=== PATIENT | female | born 1945 | race Caucasian/White ===

== ENCOUNTER → 2016-11-23 | Outpatient (CLI) | payer MEDICARE ==
[~2016-11-23] MED LIST: ADVAIR 250-501 EAC1 IH; ADVAIR 250-501 EAC1 INH; ADVAIR 250-501 EACH INH; ADVAIR INH; ALBUTEROL; ALBUTEROL MININEB NEB; ALBUTEROL17 GM INH; ALBUTEROL2.5 MG/0.5 IH; AMITIZA24 MCG PO; AMLODIPINE BESY10 MG PO; AMLODIPINE BESYL5 MG PO; ANTIBIOTIC; ASPIRIN EC81 M1 PO; ASPIRIN PO; ASPIRIN81 M2 PO; ASPIRIN81 MG PO; BAYER CHEWABLE81 MG PO; CALCIUM 500 +1 EAC5 PO; CIPRO250 M1 PO; CLOPIDOGREL75 MG PO; CORGARD PO; COZAAR100 MG PO; DILAUDID4 MG PO; DILAUDID8 MG PO; DULCOLAX5 MG PO; DURAGESIC1 EAC1 TD; DURAGESIC100 MCG EXT; GABAPENTIN300 M2 PO; GLUCOPHAGE XR500 MG PO; GLUCOPHAGE500 M1 PO; GLUCOPHAGE500 MG PO; HCTZ PO; HUMIBID-LA600 MG PO; HYDROCHLOROTHIA25 MG PO; HYDROCODON-ACE1 EAC7 PO; KCL PO; KLONOPIN1 MG PO; KLOR-CON PO; LASIX20 MG PO; LEVAQUIN PO; LEVAQUIN750 MG PO; LOSARTAN POTASS50 MG PO; MACROBID100 M1 PO; MARY'S MAGIC POTION; METFORMIN HCL500 M1 PO; METOPROLOL SUCC25 MG PO; MIRALAX17 GM PO; MYSOLINE250 MG PO; MYSOLINE50 M1 PO; NADOLOL40 MG PO; NEXIUM PO; NEXIUM20 MG PO; NICOTINE TRANSD14 MG EXT; NICOTINE1 EAC1 TD; NORCO1 TAB 10/3 PO; NORVASC PO; NORVASC10 MG PO; OXYGEN; PHENERGAN25 M1 PO; PLAVIX PO; POTASSIUM CHLO20 ME1 PO; POTASSIUM20 MEQ/101 PO; PRAVACHOL20 MG PO; PRAVASTATIN SOD40 MG PO; PREDNISONE10 MG PO; PRIMIDONE50 MG PO; PROTONIX PO; PROVENTIL INH0.5 ML HHN; SPIRIVA RESPIMAT4 G1 INH; SPIRIVA18 MCG INH; TESSALON200 MG PO; ZESTORETIC 10-1 EAC1 PO; ZITHROMAX PO; ZOCOR PO; [UNRECOGNIZED DRUG - OTHER] TOP
--- NOTE | ~2016-11-23 | CT4 ---
[facility] A Service of [facility] RADIOLOGY TEXT RESULTS PATIENT: RENETTA CHO [facility] UNIT #: [id number] AGE: [address]: Isaak Mckee MD SEX: F ORDER DR: [id number] [facility] [address]. [place], [place] [address] [id number] O MR#: [id number] Acc #: [id number] NAME: RENETTA CHO. : 1945 SEX: F STUDY DATE/TIME: 11/23/2016 10:36 [facility] ROOM: STUDY DESCRIPTION: CT Abd and Pelv Wo Cont Attending Physician: Isaak Mckee M.D. Referring Physician: Isaak Mckee M.D. Ordering Physician: Isaak Mckee M.D. Primary Care Physician: Bonnie Cameron M.D. MEDICAL IMAGING REPORT This report is preliminary unless electronic signature is present EXAM CT abdomen and pelvis. INDICATIONS Malignant neoplasm of the anterior wall of the bladder. Intra abdominal lymphadenopathy and metastatic osseous disease. Restaging. TECHNIQUE CT of the abdomen and pelvis without contrast. Coronal and sagittal reconstructions were obtained. This CT exam was performed with one or more of the following radiation dose reduction techniques: automatic exposure control, adjustment of mA and/or kV according to patient size, and iterative reconstruction. COMPARISON CT abdomen and pelvis dated 09/17/2016. FINDINGS There is a soft tissue mass at the right ureterovesicular junction measuring up to 3.1 cm. This mass is fairly similar in size to the prior study. There are, however, new hyperdense areas within the right ureter. There is an area tracking from the proximal ureter to the distal ureter measuring at least 10 cm in length. This fills the mid to distal ureter. This could be blood clot or aggression of the tumor. Evaluation is limited without IV contrast. There is a severe right hydronephrosis and right renal cortical thinning, which is similar to the prior study. There is mild left renal atrophy; however, no left hydronephrosis. Remaining solid abdominal organs are within normal limits. The bowel is not dilated. The gallbladder is surgically absent. There is a large volume of stool throughout the colon. No pathologically enlarged STS. [facility] A Service of [facility] RADIOLOGY TEXT RESULTS PATIENT: RENETTA CHO LOCATION: [facility] : 44 UNIT #: [id number] AGE: [address]: Isaak Mckee MD SEX: F ORDER DR: retroperitoneal or mesenteric lymph nodes. PELVIS: The uterus is retroflexed. Uterus is surgically absent. Soft tissue in the posterior cul-de-sac may represent clumping of bowel loops; however, it is indeterminate without contrast in this region. There is osseous metastatic disease in the axial skeleton. The lesions at L3-L5 are fairly similar to the prior study. No pathologic fractures. IMPRESSION 1. Slight enlargement soft tissue mass at the right ureterovesicular junction. 2. Development of new hyperattenuation areas filling the right ureter from the mid to distal ureter. This area measures up to at least 10 cm in length. This may represent new tumor extension in the ureter or be due to hyperdense material such as blood clot. Evaluation is limited without IV contrast. 3. Severe right hydronephrosis and right renal atrophy are fairly similar to the prior study. 4. Large-volume stool throughout the colon. 5. Osseous metastatic disease in the axial skeleton is fairly similar to the prior study in the abdomen and pelvis. Please refer to separate dictated report for details of the axial skeleton in the chest. Dictated by... Wilian Yi M.D. THIS IS AN ELECTRONICALLY VERIFIED REPORT Wilian Yi M.D. at 11/23/2016 3:13 PM CIARA/claudia TD: 11/23/2016 12:11 JOB #: [id number] MEDICAL IMAGING REPORT Page 1 of 1 COPY
--- NOTE | ~2016-11-23 | CT57 ---
[facility] A Service of [facility] RADIOLOGY TEXT RESULTS PATIENT: RENETTA CHO [facility] 44 UNIT #: [id number] AGE: [address]: Isaak Mckee MD SEX: F ORDER DR: [id number] [facility] [address]. [place], [place] [address] [id number] O MR#: [id number] Acc #: [id number] NAME: RENETTA CHO. : 1945 SEX: F STUDY DATE/TIME: 11/23/2016 10:36 UNIT: [facility] ROOM: STUDY DESCRIPTION: CT Chest Wo Cont Attending Physician: Isaak Mckee M.D. Referring Physician: Isaak Mckee M.D. Ordering Physician: Isaak Mckee M.D. Primary Care Physician: Bonnie Cameron M.D. MEDICAL IMAGING REPORT This report is preliminary unless electronic signature is present EXAM CT chest. HISTORY Malignant neoplasm, anterior wall of the bladder. Abdominal metastatic disease. Osseous metastatic disease. Restaging. Observation for malignancy. TECHNIQUE CT of the chest, without contrast. Coronal and sagittal reconstructions were obtained. This CT exam was performed with one or more of the following radiation dose reduction techniques: automatic exposure control, adjustment of mA and/or kV according to patient size, and iterative reconstruction. COMPARISON CT chest, 09/17/2016; PET/CT, 09/25/2016. The exam was performed in conjunction with CT abdomen, 11/23/2016. FINDINGS There is a small ground glass nodule in the medial aspect of the right lower lobe (image 48). This is unchanged from at least June 2016 and considered to be benign. There is some volume loss and bronchiectasis involving the right middle lobe and the lingula. This is unchanged. There is moderate emphysema. No pathologically enlarged mediastinal or hilar lymph nodes. There are several borderline superior mediastinal lymph nodes, subcentimeter in diameter. An index node measuring 0.9 cm is unchanged. Please refer to a separately dictated report for details on the abdomen. There is osseous metastatic disease at T10, T11, and T12. The degree of sclerosis within the vertebra is increased. The overall appearance suggests mild disease progression. There is a compression deformity at STS. [facility] A Service of [facility] RADIOLOGY TEXT RESULTS PATIENT: RENETTA CHO LOCATION: [facility] : 44 UNIT #: [id number] AGE: [address]: Isaak Mckee MD SEX: F ORDER DR: T12; however, this appears unchanged. There is some sclerotic metastatic disease in the sternum that appears unchanged. There is a new sclerotic lesion at T9. IMPRESSION 1. Mild progression of metastatic disease in the axial skeleton. The degree of metastatic disease, particularly in the T9 through T12 have slightly increased. There is an old pathological fracture of T12; however, no new pathologic fractures are identified. 2. Small 4-mm ground glass nodule in the right lower lobe is unchanged. Dictated by... Wilian Yi M.D. THIS IS AN ELECTRONICALLY VERIFIED REPORT Wilian Yi M.D. at 11/23/2016 3:13 PM CIARA/christ TD: 11/23/2016 12:05 JOB #: [id number] MEDICAL IMAGING REPORT Page 1 of 1 COPY
== END | disposition home or self-care (01) ==
LOC: CCAT 09:26
DX: C67.3 Malignant neoplasm of anterior wall of bladder (principal); C77.2 Secondary and unspecified malignant neoplasm of intra-abdominal lymph nodes; C79.51 Secondary malignant neoplasm of bone; G25.0 Essential tremor; R91.1 Solitary pulmonary nodule; N13.30 Unspecified hydronephrosis; N26.1 Atrophy of kidney (terminal)
CPT/HCPCS: 71250; 74176

== ENCOUNTER → 2016-12-05 | Day surgery (SDC) | payer MEDICARE ==
--- NOTE | ~2016-12-05 | OR ---
Unit #: [id number] #: [id number] Patient: RENETTA CHO [id number] [address] [place], [place] [address] [id number] O MR#: [id number] NAME: RENETTA CHO ROOM: Date of Procedure: 12/05/2016 Admission Date: 12/05/2016 Surgeon: Aramis Aguirre M.D. : 1945 Attending Physician: Aramis Aguirre M.D. Referring Physician: Aramis Aguirre M.D. Primary Care Physician: Bonnie Cameron M.D. OPERATIVE REPORT PREOPERATIVE DIAGNOSES Metastatic bladder cancer with multifocal local recurrences. POSTOPERATIVE DIAGNOSES Metastatic bladder cancer with multifocal local recurrences. PROCEDURES PERFORMED Cystoscopy, transurethral resection of numerous small bladder tumors with fulguration, and Golden catheter placement. ANESTHESIA General. INDICATIONS FOR PROCEDURE This 71-year-old woman, who required a similar procedure 4 months ago with a normal left retrograde at that time, has been diagnosed with muscle invasive disease in 08/2014 and has complete obstruction and loss of her right kidney and continues on Opdivo with Oncology. She takes Plavix and aspirin and has had recurrent bleeding for 1 month. DESCRIPTION OF PROCEDURE The patient was given preoperative Levaquin and satisfactory general anesthesia. In the dorsal lithotomy position, routine prep and drape were performed. The 21-[place] rigid cystoscope was introduced with a 30-degree lens and video noting numerous papillary tumors again on all aspects of the bladder, although primarily on the right side. There were scattered small lesions of the left wall sparing of the left ureteral orifice and periorificial area. Multiple larger lesions of the direct posterior and anterior in the midline, right wall scattered lesions anterior and laterally near the bladder neck. There was some superficial necrosis and calcification on the larger ones. A 24-[place] resectoscope was introduced with a temporary paralysis in the larger lesions looped off with the cutting current for used equipment sales representative specimens. Smaller lesions were TUR'd and mechanically reduced. After taking used equipment sales representative samples for pathology, 3 mm rollerball was applied and this being the majority of the procedure, meticulous elimination with margin of numerous lesions in all of the above areas was performed. When the bladder was free of any suspicious areas noting also that the main deep unresectable tumor had largely epithelialized over with a recessed pocket in the posterior wall right of midline, the bladder was drained with an 18-[place] 2-way catheter for overnight use. Unit #: [id number] #: [id number] Patient: RENETTA CHO The patient will be seen in followup in 2 weeks. BCG has not been pursued, but may be appropriate and we will discuss with Oncology. Dictated by... Casey Melton/shari TD: 12/06/2016 01:36 JOB #: [id number] CC: Isaak Mckee M.D. OPERATIVE REPORT Page 1 of 1 X rAamis Aguirre MD X PROCEDURE OPERATIVE NOTE
--- NOTE | ~2016-12-05 | EKG ---
PATIENT: RENETTA CHO UNIT #: [id number] Ventricular Rate: 62 BPM Atrial Rate: 62 BPM P-R Interval: 158 ms QRS Duration: 90 ms Q-T Interval: 422 ms QTC Calculation(Bezet): 428 ms P [place]: 67 degrees Calculated R [place]: -21 degrees Calculated T [place]: 43 degrees Diagnosis Line: Normal sinus rhythm Diagnosis Line: Normal ECG Diagnosis Line: When compared with ECG of 25-JUL-2016 09:47, Diagnosis Line: No significant change was found Diagnosis Line: Confirmed by OMER NEWMAN MD ([id number]) on 12/06/2016 Diagnosis Line: 4:51:22 AM INTERPRETING MD: PATY LOYA
[2016-12-05 12:15] LABS: HEMATOCRIT 29.5 % (35.0-45.0); HEMOGLOBIN 9.8 gm/dL (12.0-16.0); MEAN CELL VOLUME 98.6 FL (83-96); MEAN CORPUSCULAR HEMOGLOBIN 32.7 PG (28-34); MEAN CORPUSCULAR HGB CONC 33.2 g/dL (30-36); MEAN PLATELET VOLUME 8.4 FL (6.5-11.5); RED BLOOD COUNT 2.99 X10e (3.90-5.30); RED CELL DISTRIBUTION WIDTH 15.1 % (11.0-15.5); WHITE BLOOD COUNT 4.1 X10e3 (4.0-10.5)
[2016-12-05 12:40] LABS: BUN/CREATININE RATIO 14.66; CALCIUM SERUM 8.4 mg/dL (8.4-10.2); CREATININE SERUM 1.5 mg/dL (0.6-1.4); GLOM FILT RATE Estimated 34.5 mL/min (>60); POTASSIUM 4.3 mmol/L (3.5-5.1)
== END | disposition home or self-care (01) ==
LOC: CSUR 11:22
PROVIDERS: Urology
DX: C67.9 Malignant neoplasm of bladder, unspecified (principal); J44.9 Chronic obstructive pulmonary disease, unspecified; J45.909 Unspecified asthma, uncomplicated; K21.9 Gastro-esophageal reflux disease without esophagitis; F17.210 Nicotine dependence, cigarettes, uncomplicated; R00.1 Bradycardia, unspecified; Z87.01 Personal history of pneumonia (recurrent); Z86.73 Personal history of transient ischemic attack (TIA), and cerebral infarction without residual deficits; Z88.0 Allergy status to penicillin
CPT/HCPCS: 80048; 85027; 88305; 93005; J1100; J1642; J1956; J2250; J2405; J3010

== ENCOUNTER 2017-02-19 06:42 | Inpatient (IN) | payer MEDICARE ==
--- NOTE | ~2017-02-19 | EKG ---
PATIENT: RENETTA CHO UNIT #: [id number] Ventricular Rate: 87 BPM Atrial Rate: 55 BPM QRS Duration: 88 ms Q-T Interval: 370 ms QTC Calculation(Bezet): 445 ms Calculated R [place]: 51 degrees Calculated T [place]: 26 degrees Diagnosis Line: Accelerated Junctional rhythm Diagnosis Line: Abnormal ECG Diagnosis Line: When compared with ECG of 05-DEC-2016 11:44, Diagnosis Line: Junctional rhythm has replaced Sinus rhythm Diagnosis Line: Confirmed by KELLY FREY MD ([id number]) on Diagnosis Line: 02/20/2017 8:21:21 AM INTERPRETING MD: TK LOYA
--- NOTE | ~2017-02-19 | CT4 ---
[facility] A Service of [facility] RADIOLOGY TEXT RESULTS PATIENT: RENETTA CHO LOCATION: [address] : 44 UNIT #: [id number] AGE: [address]: Shaan Parker MD SEX: F ORDER DR: [id number] [facility] [address] [place], [place] [address] [id number] I MR#: [id number] Acc #: [id number] NAME: RENETTA CHO. : 1945 SEX: F STUDY DATE/TIME: 02/19/2017 9:20 [facility]: [facility] STUDY DESCRIPTION: CT Abd and Pelv Wo Cont Attending Physician: Cheryl Pepper M.D. Ordering Physician: Lisbeth Jones M.D. Primary Care Physician: Bonnie Cameron M.D. MEDICAL IMAGING REPORT This report is preliminary unless electronic signature is present EXAM CT abdomen and pelvis without contrast. HISTORY 71-year-old female with periumbilical pain. Diffuse lower abdominal pain since this morning. Prior cholecystectomy. History of bladder cancer with known metastases. COMPARISON CT abdomen and pelvis 11/23/2016, PET CT 02/15/2017 FINDINGS Axial images performed through the abdomen and pelvis without contrast. Multiplanar reconstructed images reviewed at a workstation. This CT exam was performed with one or more of the following radiation dose reduction techniques: automatic exposure control, adjustment of mA and/or kV according to patient size, and iterative reconstruction. Lung bases suggest emphysematous changes and fibrosis. No masses or effusions. Liver demonstrates prominence of the intra and extrahepatic ducts. This may be a normal finding in this patient post cholecystectomy. It does not appear significantly changed from prior PET CT. No focal mass lesion is identified. Spleen unremarkable. Pancreas unremarkable. Adrenal glands appear normal. There is severe right-sided hydronephrosis as well as moderate left-sided hydronephrosis. This was present on the patient's study from November but appears increased, particularly on the left. GI tract remarkable for a ffqbyddg-be-fqour amount of colonic stool. The stomach and small bowel are unremarkable. Small amount of ascites, particularly within the pelvis. PELVIS: Uterus appears retroverted. Bladder is mildly distended. [facility] A Service of [facility] RADIOLOGY TEXT RESULTS PATIENT: RENETTA CHO [facility] 44 UNIT #: [id number] AGE: [address]: Shaan Parker MD SEX: F ORDER DR: Osseous structures remarkable for extensive sclerotic bone metastases throughout the visualized spine. Mild generalized body wall edema and mesenteric edema may be related to third spacing of fluid. IMPRESSION 1. Continued bilateral hydronephrosis, right greater than left with some progression of left-sided hydronephrosis when compared to the PET CT 11/23/2016. This may be related to retroperitoneal adenopathy and pelvic adenopathy related to patient's known metastatic bladder carcinoma. 2. Moderate amount of colonic stool suggesting constipation but no evidence high-grade destruction. 3. Widely disseminated skeletal metastases. 4. Small amount of ascites. 5. Prominence of the vascular and ductal structures within the liver but no focal mass lesion is identified. This is similar to the study of 11/23/2016 but does appear somewhat increased. Correlate with patient's laboratory data. 6. Generalized body wall and mesenteric edema which may be related to third spacing of fluid. Dictated by... Griselda Denise M.D. THIS IS AN ELECTRONICALLY VERIFIED REPORT Griselda Denise M.D. at 02/20/2017 12:29 PM JESSICA/lupe TD: 02/19/2017 22:33 JOB #: [id number] MEDICAL IMAGING REPORT Page 1 of 1 COPY
--- NOTE | ~2017-02-19 | CO ---
Unit #: [id number] #: [id number] Patient: RENETTA TROY [id number] [address] [place], [place] [address] [id number] I MR#: [id number] NAME: RENETTA TROY ROOM: [facility] Age: 71 Sex: F Admission Date: 02/19/2017 : 1945 Attending Physician: Shaan Parker M.D. Primary Care Physician: Bonnie Cameron M.D. Requesting Physician: Cheryl Pepper M.D. Consultation Date: 02/20/2017 CONSULTATION REPORT REASON FOR CONSULTATION Metastatic bladder cancer; please evaluate. HISTORY OF PRESENT ILLNESS Ms. Renetta Troy is a 71 years old with a history of metastatic bladder cancer who was last seen on Saturday as a followup of her PET CT scan, which showed progression of disease with increase in mediastinal lymphadenopathy. She presented to the emergency room on 02/19/2017 and was admitted with intractable pain in the left lower quadrant accompanied by constipation. In the emergency room, she was found to be hypotensive and bradycardic and has been bolused with IV fluids, transferred to the intensive care unit where she is being monitored with continued bradycardia. Blood pressure medications, including Metoprolol, were discontinued, and she is being observed. EKG showed a junctional rhythm with a rate of 48 per minute. Today she tells me that she feels slightly better as far as pain goes; however, she has been constipated since Saturday. PAST MEDICAL HISTORY Bladder cancer, originally diagnosed in August 2014 as part of workup for hematuria. 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 A PET CT scan done at that time showed abnormal lymphadenopathy in the left retroperitoneum and left iliac chain in AP window with biopsy of retroperitoneal lymph node showing metastatic cancer. She has since been treated with carboplatin and gemcitabine, followed thereafter by radiation, Opdivo, weekly Abraxane and most recently atezolizumab. Other medical problems include type 2 diabetes, severe COPD, pulmonary hypertension, essential tremor, degenerative arthritis and history of stroke in the past. PAST SURGICAL HISTORY Cystoscopy. FAMILY HISTORY Notable for mother with breast cancer at age 83 and a daughter with breast cancer, as well. Familial tremor. SOCIAL HISTORY Smokes a few cigarettes. Used to smoke 2-3 packs a day starting at age 16. Does not drink any alcohol. Single. She lives with one daughter. REVIEW OF SYSTEMS A 14-point review of systems was taken. CONSTITUTIONAL: Fatigue, weakness. EYES: Negative. Unit #: [id number] #: [id number] Patient: RENETTA TROY EARS, NOSE, MOUTH AND THROAT: Negative. CARDIOVASCULAR: Negative. RESPIRATORY: Chronic shortness of breath without any recent change. GASTROINTESTINAL: Recurrent nausea. Left lower quadrant abdominal pain. Constipation. GENITOURINARY: Hematuria on and off. ALLERGIC/LYMPHATIC: Negative. NEUROLOGIC: Tremor. Peripheral neuropathy. PSYCHIATRIC: Negative. SKIN: Negative. PHYSICAL EXAMINATION GENERAL: She is a pleasant elderly woman, awake, alert, oriented x3, currently in no distress. VITALS: Temperature is 97.5, pulse is 54, respirations 16, blood pressure 136/48, O2 sats 93% on room air. HEENT: Head examination shows pupils are equal and react well to light. She is pale but not icteric. Mucous membranes are moist. NECK: Without adenopathy, JVD or thyromegaly. CARDIOVASCULAR SYSTEM: First and second heart sounds were heard and regular with bradycardia. LUNGS: Chest expansion is symmetric. Bilateral equal with normal good breath sounds. ABDOMEN: Abdomen is soft. Slightly tender in the lower quadrants without any palpable masses. EXTREMITIES: Extremities are warm with good pulses. No edema, cyanosis or clubbing. NEUROLOGIC: She is awake, alert and oriented x3 without any focal findings. SKIN: Negative. LYMPHATICS: Negative. MUSCULOSKELETAL: Negative. DIAGNOSTIC STUDIES LABS: CBC with a white count of 5, hemoglobin 9.7, platelet count 133,000. A ProTime is 12, PTT 33.8. Lactic acid level is 0.7. Urine culture shows 1+ leukocyte esterase positive with numerous red cells. (1) is 3.2. Hemoglobin A1C is 5.3. Troponin level is 0.03. Ferritin level is 67. Iron is 34, TIBC 313, saturation is 11%. IMAGING: CT scan of the abdomen and pelvis has been personally reviewed by me, and findings were reviewed in comparison to her recent CT scan. A severe right hydronephrosis along with moderate left-sided hydronephrosis with a moderate to large amount of colonic stool and multiple skeletal metastases, which are stable. ASSESSMENT AND PLAN Ms. Renetta Troy is 71 years old with history of metastatic bladder cancer, type 2 diabetes, COPD, essential tremor, admitted with left lower quadrant abdominal pain. Was found to be hypotensive and bradycardic, which is now better, although bradycardia persists with a junctional rhythm. Beta-blockers have been discontinued. There is a possibility she may require a pacemaker if she continues to remain bradycardic. Her abdominal pain may, in part, be secondary to constipation given the recent change in pain medications. I discussed this with her. Will continue current dose of fentanyl patch and add Dulcolax suppository with plans to undergo an enema based upon response to suppository. Plans were discussed in detail with the patient, as well as daughter who is at bedside. Unit #: [id number] #: [id number] Patient: RENETTA TROY Thank you for allowing me to participate in her care. Dictated by... Casey Vale/noel TD: 02/20/2017 14:39 JOB #: [id number] CONSULTATION REPORT Page 1 of 1 X Isaak Mckee MD X CONSULTATION REPORT
--- NOTE | ~2017-02-19 | DS ---
Unit #: [id number] #: [id number] Patient: RENETTA CHO [id number] [address] [address] [id number] I MR#: [id number] NAME: RENETTA CHO. ROOM: [facility] Age: 71 Sex: F Admission Date: 02/19/2017 : 1945 Discharge Date: Attending Physician: Shaan Parker M.D. Primary Care Physician: Bonnie Cameron M.D. DISCHARGE SUMMARY PRIMARY DIAGNOSIS Symptomatic/unstable bradycardia, likely secondary to vagal etiology. SECONDARY DIAGNOSES 1. Abdominal pain, secondary to metastatic bladder cancer and hydronephrosis. 2. Peripheral vascular disease. 3. End-stage chronic obstructive pulmonary disease. 4. Chronic hypoxemic respiratory failure. 5. Nicotine abuse. 6. Severe essential tremor, genetic. HOSPITAL COURSE The patient was admitted to the ICU and placed on a dopamine drip with an external pacemaker in place for the first 24 hours. She was weaned off the dopamine drip and was seen in consultation with Dr. Marina and Dr. Elver Munguia with cardiology. The patient is a regular patient of Dr. Elver Munguia. Also, saw Dr. Aguirre with urology and Dr. Mckee with oncology. The patient's bradycardia improved and her medications were adjusted by cardiology and oncology. Dr. Aguirre with urology is planning an outpatient cystoscopy and fulguration of tumors as well as a left-sided stent placement early next week. She is having her aspirin and Plavix held in preparation for that. The patient was given contact information for Dr. Shaan Langley and Dr. Percy Antonio. She has seen Dr. Percy Antonio for her COPD in the past. Per cardiology, recommendation is for an outpatient sleep study when able, although patient is going to be very busy with ongoing chemotherapy and radiation for her bladder cancer as well as ongoing physical therapy for physical deconditioning. I did discuss with care management trying to get the patient a smaller portal oxygen tank for home as due to her frailty, she has difficulty with her current portable oxygen tank. DISCHARGE DISPOSITION To home with home health. DISCHARGE STATUS Clinically stable but with a poor long-term prognosis. DISCHARGE ACTIVITY Ad clifton. Unit #: [id number] #: [id number] Patient: RENETTA CHO DISCHARGE DIET Low-sodium diet. DISCHARGE MEDICATIONS Please see discharge med rec. Dictated by... Casey Levin/puja TD: 02/21/2017 12:41 JOB #: [id number] DISCHARGE SUMMARY Page 1 of 1 X Shaan Parker MD X DISCHARGE SUMMARY
--- NOTE | ~2017-02-19 | CR72 ---
[facility] A Service of [facility] RADIOLOGY TEXT RESULTS PATIENT: RENETTA CHO LOCATION: [address] : [birth year] UNIT #: [id number] AGE: [address]: Shaan Parker MD SEX: F ORDER DR: [id number] [facility] [address] [place], [place] [address] [id number] MR#: [id number] Acc #: [id number] NAME: RENETTA CHO. : 1945 SEX: F STUDY DATE/TIME: 02/19/2017 8:16 [facility]IT: [facility]OM: [facility] STUDY DESCRIPTION: CR Chest Single View Portable Attending Physician: Cheryl Pepper M.D. Ordering Physician: Lisbeth Jones M.D. Primary Care Physician: Bonnie Cameron M.D. MEDICAL IMAGING REPORT This report is preliminary unless electronic signature is present EXAM Portable chest HISTORY Hypoxia, abdominal pain. History of stroke. History of bladder cancer with metastases. COMPARISON 07/12/2016 FINDINGS Portable view of the chest demonstrates pulmonary hyperinflation and hyperlucency suggesting underlying emphysema. Small amount of right basilar atelectasis and/or early infiltrate. No dense consolidation. No sizeable effusions. Heart and mediastinum unremarkable. Indwelling venous access port overlies the right chest, distal tip mid SVC. No pneumothorax. Dictated by... Griselda Denise M.D. THIS IS AN ELECTRONICALLY VERIFIED REPORT Griselda Denise M.D. at 02/20/2017 12:29 PM JESSICA/lupe TD: 02/19/2017 22:17 JOB #: [id number] MEDICAL IMAGING REPORT Page 1 of 1 COPY
--- NOTE | ~2017-02-19 | CO ---
Unit #: [id number] #: [id number] Patient: RENETTA CHO [id number] [address] [place], [place] [address] [id number] MR#: [id number] NAME: RENETTA CHO ROOM: [facility] Age: 71 Sex: F Admission Date: 02/19/2017 : 1945 Attending Physician: Shaan Parker M.D. Primary Care Physician: Bonnie Cameron M.D. CONSULTATION REPORT REASON FOR CONSULTATION Bradycardia. HISTORY OF PRESENT ILLNESS This is a 71-year-old white female, who presented to the emergency room with a complaint of abdominal pain that is worsening over the past one day. She had no episodes of vomiting, but however today she has significant vomiting and nausea. She has a history of metastatic bladder cancer that has radiated to her lumbar spine. She has undergone chemotherapy and radiation in the past and was scheduled to restart chemotherapy soon. During the course of her stay, the patient was noted to be bradycardic where heart rate was in the 40s. Her blood pressure was also low at 87/56 mmHg. She has been placed on dopamine drip. She is also on IV fluids. She has been treated for pain with Dilaudid and for nausea, Zofran. She denies any symptoms of angina. She denies palpitations, dizziness, or diaphoresis. The patient is a poor historian, but states she has had a cardiac catheterization and/or stress test years ago, but there are no details available. PAST MEDICAL HISTORY 1. A 2D echocardiogram on 12/27/2012 showed ejection fraction equal to greater than 55% with pseudonormalization. There is mild tricuspid regurgitation. Right ventricular systolic pressure 40 to 50 mmHg. 2. Hypertension. 3. Hyperlipidemia. 4. Peripheral vascular disease with history of carotid endarterectomy, peripheral stents. 5. Diabetes mellitus, type 2. 6. Metastatic bladder cancer, radiation to the spine. 7. End-stage COPD. 8. Chronic back pain. 9. Active smoker. 10. Abdominal aortic aneurysm repair. PAST SURGICAL HISTORY 1. Bilateral carotid endarterectomy. 2. Lower extremity stenting. 3. Abdominal aortic aneurysm repair. 4. Cholecystectomy. 5. Breast lumpectomy. 6. TURP. 7. Port placement. SOCIAL HISTORY Unit #: [id number] #: [id number] Patient: RENETTA CHO The patient lives with her daughter. She smokes a pack of cigarettes a day. She denies illicit drug or alcohol use. FAMILY HISTORY Negative for coronary artery disease. Her father from cancer. ALLERGIES Penicillin. HOME MEDICATIONS Gabapentin 300 mg q.h.s., aspirin 81 mg daily, fentanyl 100 mcg q.72 hours, Dilaudid 8 mg q.4 hours p.r.n., Plavix 75 mg daily, metoprolol succinate 25 mg daily, Advair 250/50 Diskus one inhalation b.i.d., Spiriva one inhalation daily, Norvasc 10 mg daily, furosemide 20 mg b.i.d., pravastatin 20 mg daily. REVIEW OF SYSTEMS CONSTITUTIONAL: Negative for fever or chills. Has no weight gain or weight loss. HEENT: No headache, hearing or vision changes, or difficulty with swallowing. No dizziness. CARDIOVASCULAR: Has no symptoms of angina. Denies palpitations. No paroxysmal nocturnal dyspnea or orthopnea. No syncope or near syncope. RESPIRATORY: No shortness of breath, cough, or hemoptysis. GASTROINTESTINAL: Positive for abdominal pain, nausea, vomiting nonbloody emesis. EXTREMITIES: Positive for lower extremity edema. PHYSICAL EXAMINATION VITAL SIGNS: Blood pressure 87/56, heart rate 40, temperature 97.7, weight 57.7 kg. GENERAL: This is a very pale 71-year-old, ill-appearing white female, who is in no acute respiratory distress. NEUROLOGIC: She is awake, alert, and oriented. There are no focal weaknesses. NECK: Trachea is midline. No thyromegaly or lymphadenopathy. No jugular venous distention. HEART: S1 and S2. Heart sounds are normal. No murmurs, rubs, or clicks. Regular rate and rhythm. LUNGS: Diminished breath sounds without rales, rhonchi, or wheezes. ABDOMEN: Slightly firm, nontender with bowel sounds are present. EXTREMITIES: With 1+ leg edema. SKIN: Warm and dry. DIAGNOSTIC STUDIES LABORATORY RESULTS: White count 5.0, hemoglobin 9.7, hematocrit 29.5, platelet count 133. Sodium 133, potassium 4.5, BUN 25, creatinine 1.3, glucose 97, troponin less than 0.05. IMAGING STUDIES: CT of the abdomen and pelvis shows slight enlargement of soft-tissue mass in the right ureterovesical junction. Severe right hydronephrosis with right renal atrophy. CT of the chest shows mild progression of the metastatic disease in axial skeleton. There is metastatic disease in T9 through T12. No pathological new fractures are found. Unit #: [id number] #: [id number] Patient: RENETTA CHO CARDIOVASCULAR STUDIES: Initial electrocardiogram shows junctional tachycardia with a rate of 87 beats per minute. Repeat EKG shows junctional rhythm with a rate of 48 beats per minute. There were no acute ischemic changes. IMPRESSION 1. Abdominal pain. 2. Metastatic bladder cancer to the spine. 3. Junctional bradycardia. 4. Hypotension. 5. Peripheral vascular disease, status post peripheral stents/bilateral carotid endarterectomies/abdominal aortic aneurysm repair. 6. End-stage chronic obstructive pulmonary disease. 7. Chronic respiratory failure. 8. Nicotine abuse. PLAN 1. Cardiology was consulted for bradyarrhythmias. The patient's bradycardia is probably secondary to vagal etiology. We will continue dopamine for heart rate and blood pressure control. 2. Continue supportive care. 3. Agree with IV fluids. 4. We will obtain 2D echocardiogram to evaluate left ventricular systolic function and valvular heart disease. 5. Obtain TSH to rule out thyroid disease. 6. Atropine will be given if needed. 7. Continue to hold beta-blockers. 8. Questionable level of care given metastatic cancer. 9. We will follow the patient with you. Thank you for allowing us to assist with this patient's care. Dictated by... Marco A CarsonP.RManiN. for S. Casey Borjas/shari TD: 02/19/2017 18:01 JOB #: [id number] CC: Casey Wheeler M.D. CONSULTATION REPORT Page 1 of 1 X Sha Ignacio APRN X CONSULTATION REPORT
--- NOTE | ~2017-02-19 | HP ---
Unit #: [id number] #: [id number] Patient: RENETTA CHO [id number] [address] [address] [id number] I MR#: [id number] NAME: RENETTA CHO. ROOM: 52338 Age: 71 Sex: F Admission Date: 02/19/2017 : 1945 Attending Physician: Cheryl Pepper M.D. Primary Care Physician: Bonnie Cameron M.D. HISTORY AND PHYSICAL CHIEF COMPLAINT Abdominal pain. HISTORY OF PRESENT ILLNESS The patient is a 71-year-old female with past medical history of metastatic bladder cancer, chronic pain, hypertension, hyperlipidemia, diabetes, COPD, chronic respiratory failure, peripheral vascular disease, pulmonary hypertension, compression fracture, valvular heart disease, chronic anemia who presented to the emergency department for evaluation of the above. The patient states that she has a history of abdominal pain. It became acutely worse within the past 24 hours. She states that it is in the lower abdomen. She describes as "achy." There are no exacerbating or alleviating factors. It is similar to pain that she has had in association with bladder cancer in the past. She reports one bout of nonbloody emesis within the past 24 hours. Her last bowel movement was on February 17, 2017. She denies any fever. No cough or cold symptoms. No chest pain. No difficulty breathing. In the emergency department, initial pulse and blood pressure were 43 and [address] of the abdomen and pelvis was done and showed bilateral hydronephrosis, right greater than left with associated retroperitoneal adenopathy, skeletal metastases. A small amount of ascites was also noted. EKG showed a junctional rhythm with a rate of 48 beats per minute. She was given 1 L of normal saline as well as 1 mg of Dilaudid, 4 mg of Zofran. She is being admitted to [facility] for evaluation and further treatment. PAST MEDICAL HISTORY 1. Admission to [facility], July 12 through July 14, 2016 for weakness. 2. Metastatic bladder cancer, followed by Dr. Aguirre and Dr. Mckee. Her last chemotherapy was about three months ago. 3. Chronic pain, maintained on p.o. Dilaudid as well as Fentanyl patch. 4. Hypertension. 5. Hyperlipidemia. 6. Diabetes. 7. COPD with continued tobacco abuse. 8. Chronic respiratory failure on 2 L of oxygen per nasal cannula. 9. Peripheral vascular disease, status post bilateral lower extremity stenting. 10. History of compression fracture. 11. Pulmonary hypertension. Unit #: [id number] #: [id number] Patient: RENETTA CHO 12. Valvular heart disease, the patient has seen Dr. Henson in the past. 13. Echocardiogram, December 27, 2012, showed an ejection fraction of greater than 55% with transmitral Doppler flow pattern suggestive of pseudonormalization. Right ventricular systolic pressure was elevated at 40-50 mmHg. Mild mitral regurgitation was also noted. PAST SURGICAL HISTORY 1. Bilateral carotid endarterectomy. 2. Bilateral lower extremity stenting. 3. Abdominal aortic aneurysm repair. 4. Cholecystectomy. 5. Breast lumpectomy. 6. Transurethral resection of bladder tumor. 7. Port placement. SOCIAL HISTORY The patient lives with her daughter. She continues to smoke a pack of cigarettes daily. She denies alcohol use. She walks without assistance. She states that she has not thought about her code status. She would like to discuss it with family. FAMILY HISTORY Notable for her dad having liver and lung cancer. ALLERGIES Penicillin. HOME MEDICATIONS 1. Advair 250/50 inhaled twice daily. 2. Spiriva inhaled daily. 3. Norvasc 10 mg daily. 4. Lasix 20 mg twice daily. 5. Pravachol 20 mg daily. 6. Aspirin 81 mg daily. 7. Duragesic patch 100 mcg q.72 hours. 8. Dilaudid 8 mg q.4 hours p.r.n. 9. Plavix 75 mg daily. 10. Metoprolol 25 mg daily. 11. Gabapentin 300 mg daily. REVIEW OF SYSTEMS A complete review of systems is negative except as indicated in the HPI. DIAGNOSTIC STUDIES LABORATORY: Troponin is less than 0.05. Complete blood count notable for hemoglobin and hematocrit of 9.7 and 29.5 respectively, platelets are 133,000. INR is 1.1. Lactic acid is 0.7. Comprehensive metabolic panel notable for sodium of 133, BUN and creatinine of 25 and 1.3 respectively. Calcium is 8.3. Albumin 3.4, alkaline phosphatase 119. Lipase is 10. Urinalysis: Notable for 1+ leukocyte esterase, 3+ protein, 3+ blood with innumerable red blood cells, 2-5 white blood cells, no bacteria, nitrite negative. IMAGING: Chest x-ray shows findings consistent with emphysema. CT of the abdomen and pelvis shows bilateral hydronephrosis, right greater than left. Retroperitoneal adenopathy, skeletal metastases, and small ascites. Unit #: [id number] #: [id number] Patient: RENETTA CHO CARDIOVASCULAR: EKG shows junctional rhythm with rate of 48 beats per minute. PHYSICAL EXAMINATION VITAL SIGNS: Temperature is 97.7, pulse 43, respirations 20, blood pressure 95/63, oxygen saturation is 95% on room air. GENERAL: The patient is a female who is awake and alert in no acute distress. HEENT: The head is atraumatic. Mucous membranes are moist. NECK: Supple. Trachea is midline. CARDIOVASCULAR: Regular rate and rhythm. LUNGS: Demonstrate decreased breath sounds at the bases. Breathing is not labored with conversation. ABDOMEN: Soft. She is tender to palpation throughout. Bowel sounds are present in all four quadrants. EXTREMITIES: Nontender with no pedal edema. NEUROLOGIC: The patient is awake and alert. She follows commands. PSYCHIATRIC: Mood and affect are normal. The patient is cooperative. SKIN: Skin of examined areas is warm and dry. The patient does have a port in the right upper chest. ASSESSMENT The patient is a 71-year-old female with: 1. Abdominal pain. 2. Metastatic bladder cancer, followed by Dr. Mckee and Dr. Aguirre. The patient's last chemotherapy was three months ago. 3. Bradycardia with a heart rate currently of 43. 4. Chronic pain, maintained on p.o. Dilaudid as well as Fentanyl patch. 5. Hypertension: The patient's blood pressure has actually been running low in the emergency department, most recent blood pressure 98/53. 6. Hyperlipidemia. 7. Diabetes. 8. Chronic obstructive pulmonary disease with continued tobacco abuse. 9. Chronic respiratory failure on 2 L of oxygen per nasal cannula. 10. Peripheral vascular disease, status post bilateral lower extremity stenting, bilateral carotid endarterectomy, abdominal aortic aneurysm repair. 11. Pulmonary hypertension with right ventricular systolic pressure as noted above. 12. Compression fracture. 13. Valvular heart disease with echocardiogram results noted above. 14. Chronic anemia: The patient's hemoglobin was 9.8 on December 05, 2016. It is 9.7 today. PLAN 1. Admit for observation to intermediate level. 2. Advance to liquid diet as tolerated. 3. Normal sinus rhythm at 75 mL/hr. 4. Dilaudid 1 to 2 mg IV q.4 hours p.r.n. 5. P.r.n. Zofran. 6. Dopamine drip at 2 mcg/kg/min. 7. Monitor heart rate and blood pressure closely. 8. Will hold Norvasc, Lasix, and metoprolol. 9. Serial cardiac enzymes. 10. A 2D echo. 11. TSH. 12. Consult Dr. Munguia regarding bradycardia. Unit #: [id number] #: [id number] Patient: RENETTA CHO 13. Consult Dr. Mckee regarding metastatic bladder cancer. 14. Supplemental oxygen. 15. P.r.n. DuoNeb. 16. Hemoglobin A1c. 17. Low-dose sliding scale insulin with Accu-Cheks. 18. Blood cultures x2 for further evaluation of hypotension to rule out infection. 19. Repeat labs in the morning. 20. SCDs for DVT prophylaxis. 21. Additional workup and consultants based on above. Dictated by Casey García/puja TD: 02/19/2017 11:39 JOB #: [id number] HISTORY AND PHYSICAL Page 1 of 1 X Cheryl Pepper MD X HISTORY AND PHYSICAL
--- NOTE | ~2017-02-19 | CO ---
Unit #: [id number] #: [id number] Patient: RENETTA CHO [id number] [address] [place], [place] [address] [id number] I MR#: [id number] NAME: RENETTA CHO. ROOM: [facility] Age: 71 Sex: F Admission Date: 02/19/2017 : 1945 Attending Physician: Shaan Parker M.D. Primary Care Physician: Bonnie Cameron M.D. CONSULTATION REPORT REASON FOR CONSULTATION New left hydronephrosis in patient with metastatic bladder cancer. HISTORY This pleasant, 71-year-old woman was admitted for abdominal pain thought due in part to constipation, although she has metastatic bladder cancer with multiple skeletal metastases and pelvic lymphadenopathy. Her constipation is improved. Some pain persists. She has also had severe bradycardia into the 20s noted on this admission. I am consulted due to progressive left-sided hydronephrosis. She was formerly treated by Dr. Ta who diagnosed muscle invasive bladder cancer with a large TUR in July of 2014. 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 She has required multiple palliative cystoscopies, most recently under my care, including normal left retrograde with treatment of numerous small bladder tumors in July followed by cystoscopy and repeat fulguration in November. I have discussed BCG with her and with Dr. Mckee to reduce the frequency of her bladder recurrences and this was thought medically appropriate and permissible in conjunction with chemotherapy, but this has been deferred due to continued bleeding. She takes aspirin and Plavix. She is currently comfortable in the ICU, still with some left lower quadrant pain, but no left flank pain per se. She is troubled by the ongoing bladder bleeding and would like this addressed again when appropriate. PAST MEDICAL HISTORY Includes hypertension, hyperlipidemia, diabetes, COPD, peripheral vascular disease, compression fractures, chronic anemia, valvular heart disease, and metastatic bladder cancer. PAST SURGICAL HISTORY Surgeries include multiple TURs, bilateral carotid endarterectomy, bilateral lower extremity stents, abdominal aortic aneurysm repair, cholecystectomy, and breast lumpectomy. FAMILY HISTORY Noncontributory. SOCIAL HISTORY Unit #: [id number] #: [id number] Patient: RENETTA CHO Markedly strong and continued tobacco history. REVIEW OF SYSTEMS Notable for the above. HOME MEDICATIONS 1. Advair. 2. Spiriva. 3. Norvasc. 4. Lasix. 5. Pravachol. 6. Low dose aspirin. 7. Duragesic. 8. Dilaudid. 9. Plavix 75. 10. Metoprolol. 11. Gabapentin. ALLERGIES Penicillin. PHYSICAL EXAMINATION GENERAL APPEARANCE: Patient is alert with her usual anxious appearance, but comfortable. VITAL SIGNS: Afebrile with stable vital signs currently. Temperature 97.8 degrees; pulse 66; blood pressure 158/74; respirations 16; height 5 feet, 5 inches; and weight 136 pounds. ABDOMEN: Soft with left lower quadrant tenderness. DIAGNOSTIC STUDIES LABORATORY: BUN 24, creatinine 13, EGFR 41, and albumin 3. Hemoglobin 9.8. IMAGING: CT scan, personally reviewed, shows new moderate left hydronephrosis. It was mild on 11/23 PET. Skeletal metastases, multiple, noted. IMPRESSION 1. Left hydronephrosis to solitary functional kidney, likely to progress importantly. 2. Presumed multiple recurrent bladder tumors with ongoing hematuria. Patient has a poor prognosis at this point, but is still relatively comfortable and functional and would like to proceed with repeat fulguration of bladder tumors and stent placement as offered. PLAN Will schedule cystoscopy and fulguration of tumors and left stent placement when medically permissible, perhaps early next week or as outpatient. Her aspirin and Plavix are on hold. Thank you for the consultation. Dictated by... Aramis Aguirre M.D. [facility]/ Unit #: [id number] #: [id number] Patient: RENETTA CHO TD: 02/21/2017 10:17 JOB #: [id number] CC: Casey García M.D. CONSULTATION REPORT Page 1 of 1 X Aramis Aguirre MD CONSULTATION REPORT
--- NOTE | ~2017-02-19 | EKG ---
PATIENT: RENETTA CHO UNIT #: [id number] Ventricular Rate: 48 BPM Atrial Rate: 250 BPM QRS Duration: 84 ms Q-T Interval: 458 ms QTC Calculation(Bezet): 409 ms Calculated R [place]: 56 degrees Calculated T [place]: 23 degrees Diagnosis Line: Junctional rhythm Diagnosis Line: Abnormal ECG Diagnosis Line: When compared with ECG of 19-FEB-2017 07:44, Diagnosis Line: (unconfirmed) Diagnosis Line: Vent. rate has decreased BY 39 BPM Diagnosis Line: Confirmed by KELLY FREY MD ([id number]) on Diagnosis Line: 02/20/2017 8:21:26 AM INTERPRETING MD: TK LOYA
[~2017-02-19 06:42] MED LIST changes: -ADVAIR 250-501 EAC1 INH; -CALCIUM 500 +1 EAC5 PO; -DILAUDID8 MG PO; -GABAPENTIN300 M2 PO; -LEVAQUIN750 MG PO; -MARY'S MAGIC POTION; -METOPROLOL SUCC25 MG PO; -MIRALAX17 GM PO; -NORVASC10 MG PO; -PRAVACHOL20 MG PO; -ZESTORETIC 10-1 EAC1 PO; -[UNRECOGNIZED DRUG - OTHER] TOP
[2017-02-19 08:07] LABS: POC - CKMB <1.0 ng/mL (0.0-7.9); POC - TROPONIN <0.05 ng/mL (<=0.05)
[2017-02-19 08:10] LABS: BASOPHIL% 0.6 % (0-2.5); EOSINOPHIL% 0.7 % (0.0-7.0); HEMATOCRIT 29.5 % (35.0-45.0); HEMOGLOBIN 9.7 gm/dL (12.0-16.0); LYMPHOCYTE# 0.4 X10e3 (1.0-3.5); LYMPHOCYTE% 8.2 % (17.0-45.0); MEAN CELL VOLUME 96.1 FL (83-96); MEAN CORPUSCULAR HEMOGLOBIN 31.6 PG (28-34); MEAN CORPUSCULAR HGB CONC 32.9 g/dL (30-36); MEAN PLATELET VOLUME 9.3 FL (6.5-11.5); MONOCYTE# 0.4 X10e3 (0-1.0); MONOCYTE% 9.1 % (3.0-12.0); NEUTROPHIL% 81.4 % (40-75); PLATELET COUNT 133 X10e3 (140-420); RED BLOOD COUNT 3.07 X10e (3.90-5.30); RED CELL DISTRIBUTION WIDTH 15.6 % (11.0-15.5)
[2017-02-19 08:14] LABS: DIFF IND NO
[2017-02-19 08:24] LABS: INR 1.1; PARTIAL THROMBOPLASTIN TIME 33.8 SECONDS (23.5-31.3)
[2017-02-19 08:43] LABS: URINE SOURCE CLEAN CATCH
[2017-02-19 08:52] LABS: ALBUMIN SERUM 3.4 g/dL (3.5-5.0); BILIRUBIN, DIRECT 0.2 mg/dL (0.0-0.2); BILIRUBIN,INDIRECT 0.9 mg/dL (0.0-0.9); BILIRUBIN,TOTAL 1.1 mg/dL (0.2-2.0); BUN/CREATININE RATIO 19.23; CALCIUM SERUM 8.3 mg/dL (8.4-10.2); CREATININE SERUM 1.3 mg/dL (0.6-1.4); POTASSIUM 4.5 mmol/L (3.5-5.1)
[2017-02-19 08:54] LABS: URINE APPEARANCE CLOUDY; URINE BILIRUBIN NEG (NEG); URINE BLOOD 3+ (NEG); URINE GLUCOSE NEG (NEG); URINE KETONE NEG (NEG); URINE LEUKOCYTE ESTERASE 1+ (NEG); URINE NITRATE NEG (NEG); URINE PH 5.5 (5-8); URINE PROTEIN 3+ (NEG); URINE SPECIFIC GRAVITY 1.018 (1.003-1.035)
[2017-02-19 08:58] LABS: U HYALINE CASTS AUWI 0-2 /[LPF]; URBCS1 AUWI INNUM /[HPF] (0-2); URINE BACTERIA AUWI NEG (NEGATIVE); URINE COLOR BROWN; URINE SQUAMOUS EPITHELIAL CELL NONE SEEN /[HPF]
[2017-02-19 08:59] LABS: CULTURE INDICATED? YES
[2017-02-19] MEDS ORDERED: ADVAIR 250-501 EAC1 INH (10:04)
[2017-02-19] MEDS ORDERED: NORVASC10 MG PO (10:05)
[2017-02-19] MEDS ORDERED: LASIX20 MG PO (10:05)
[2017-02-19] MEDS ORDERED: SPIRIVA18 MCG INH (10:05)
[2017-02-19] MEDS ORDERED: ASPIRIN81 M2 PO (10:05)
[2017-02-19] MEDS ORDERED: PRAVACHOL20 MG PO (10:05)
[2017-02-19] MEDS ORDERED: DURAGESIC1 EAC1 TD (10:06)
[2017-02-19] MEDS ORDERED: DILAUDID8 MG PO (10:07)
[2017-02-19] MEDS ORDERED: CLOPIDOGREL75 MG PO (10:07)
[2017-02-19] MEDS ORDERED: GABAPENTIN300 M2 PO (10:07)
[2017-02-19] MEDS ORDERED: METOPROLOL SUCC25 MG PO (10:07)
[2017-02-19 13:14] LABS: CHOLESTEROL 133 mg/dL (0-200); HDL CHOLESTEROL 53 mg/dL (35-95); LDL CHOLESTEROL 64 mg/dL (-130); LDL/HDL RATIO 1 RATIO (0-4); TRIGLYCERIDES 78 mg/dL (10-160)
[2017-02-19 14:54] LABS: %MB 2.8 % (0.0-4.0); MB 2.1 ng/ml
[2017-02-19 17:41] LABS: IRON SERUM 34 ug/dL (28-170); TOTAL IRON BINDING CAPACITY 313 ug/dL (269-535); TRANSFERRIN 224 mg/dL (192-382); TRANSFERRIN SATURATION 11 % (20-50)
[2017-02-19 20:40] LABS: %MB 2.9 % (0.0-4.0); MB 2.2 ng/ml
[2017-02-20 05:21] LABS: BASOPHIL% 0.5 % (0-2.5); EOSINOPHIL% 0.5 % (0.0-7.0); HEMATOCRIT 29.1 % (35.0-45.0); HEMOGLOBIN 9.5 gm/dL (12.0-16.0); LYMPHOCYTE# 0.6 X10e3 (1.0-3.5); LYMPHOCYTE% 12.2 % (17.0-45.0); MEAN CELL VOLUME 96.5 FL (83-96); MEAN CORPUSCULAR HEMOGLOBIN 31.4 PG (28-34); MEAN CORPUSCULAR HGB CONC 32.5 g/dL (30-36); MEAN PLATELET VOLUME 8.9 FL (6.5-11.5); MONOCYTE# 0.6 X10e3 (0-1.0); MONOCYTE% 11.2 % (3.0-12.0); NEUTROPHIL% 75.6 % (40-75); PLATELET COUNT 139 X10e3 (140-420); RED BLOOD COUNT 3.01 X10e (3.90-5.30); RED CELL DISTRIBUTION WIDTH 15.6 % (11.0-15.5); WHITE BLOOD COUNT 5.3 X10e3 (4.0-10.5)
[2017-02-20 05:30] LABS: DIFF IND NO
[2017-02-20 06:45] LABS: BILIRUBIN,TOTAL 0.9 mg/dL (0.2-2.0); BUN/CREATININE RATIO 18.66; CALCIUM SERUM 7.3 mg/dL (8.4-10.2); CREATININE SERUM 1.5 mg/dL (0.6-1.4); GLOM FILT RATE Estimated 34.5 mL/min (>60); POTASSIUM 4.7 mmol/L (3.5-5.1); PROTEIN TOTAL SERUM 5.3 g/dL (6.0-8.3)
[2017-02-21 05:38] LABS: BASOPHIL% 0.6 % (0-2.5); EOSINOPHIL% 0.9 % (0.0-7.0); HEMATOCRIT 29.7 % (35.0-45.0); HEMOGLOBIN 9.8 gm/dL (12.0-16.0); LYMPHOCYTE# 0.4 X10e3 (1.0-3.5); LYMPHOCYTE% 8.1 % (17.0-45.0); MEAN CELL VOLUME 96.1 FL (83-96); MEAN CORPUSCULAR HEMOGLOBIN 31.7 PG (28-34); MEAN CORPUSCULAR HGB CONC 32.9 g/dL (30-36); MEAN PLATELET VOLUME 8.9 FL (6.5-11.5); MONOCYTE# 0.4 X10e3 (0-1.0); MONOCYTE% 7.8 % (3.0-12.0); NEUTROPHIL# 4.5 X10e3 (1.5-7.1); NEUTROPHIL% 82.6 % (40-75); PLATELET COUNT 130 X10e3 (140-420); RED BLOOD COUNT 3.08 X10e (3.90-5.30); RED CELL DISTRIBUTION WIDTH 15.6 % (11.0-15.5); WHITE BLOOD COUNT 5.4 X10e3 (4.0-10.5)
[2017-02-21 05:57] LABS: DIFF IND NO
[2017-02-21 06:30] LABS: BUN/CREATININE RATIO 18.46; CALCIUM SERUM 7.4 mg/dL (8.4-10.2); CREATININE SERUM 1.3 mg/dL (0.6-1.4); POTASSIUM 4.8 mmol/L (3.5-5.1)
[2017-02-21] MEDS ORDERED: ZESTORETIC 10-1 EAC1 PO (12:48)
== END 2017-02-21 14:30 | disposition home health service (06) | DRG 309 ==
LOC: CED 06:42 → CEDOF 11:05 → CED 11:05 → CICCU3 11:23 → CEDOF 11:23 → CED 11:23 → CEDOF 14:34 → CICCU3 14:34 → CEDOF 15:02 → CICCU3 02-20 07:06
PROVIDERS: Emergency Medicine; Family Medicine; Internal Medicine; Internal Medicine Cardiovascular Disease
PROC: B24BZZZ Ultrasonography of Heart with Aorta (ICD-10-PCS; principal; 2017-02-20)
DX: R00.1 Bradycardia, unspecified (principal); C77.5 Secondary and unspecified malignant neoplasm of intrapelvic lymph nodes; J96.11 Chronic respiratory failure with hypoxia; C79.51 Secondary malignant neoplasm of bone; R18.8 Other ascites; I95.9 Hypotension, unspecified; N13.30 Unspecified hydronephrosis; C67.9 Malignant neoplasm of bladder, unspecified; I73.9 Peripheral vascular disease, unspecified; J44.9 Chronic obstructive pulmonary disease, unspecified; F17.210 Nicotine dependence, cigarettes, uncomplicated; G25.2 Other specified forms of tremor; G89.29 Other chronic pain; I10 Essential (primary) hypertension; E78.5 Hyperlipidemia, unspecified; E11.9 Type 2 diabetes mellitus without complications; I27.2 Other secondary pulmonary hypertension; D53.9 Nutritional anemia, unspecified; K59.00 Constipation, unspecified; R31.9 Hematuria, unspecified; Z80.3 Family history of malignant neoplasm of breast; Z90.49 Acquired absence of other specified parts of digestive tract; Z88.0 Allergy status to penicillin
CPT/HCPCS: 51701; 71010; 74176; 80048; 80053; 80061; 80076; 81003; 82550; 82553; 82728; 82947; 83036; 83540; 83550; 83605; 83690; 84443; 84484; 85025; 85610; 85730; 87040; 87086; 93005; 93306; 94640; 94664; 94760; 94761; 96361; 96374; 97161; 97166; 99285; G8978-GP; G8979-GP; G8980-GP; G8987-GO; G8988-GO; G8989-GO; J0461; J1170; J1265; J1815; J2405

== ENCOUNTER → 2017-03-01 | Day surgery (SDC) | payer MEDICARE ==
[~2017-03-01] MED LIST changes: +ADVAIR 250-501 EAC1 INH; +CALCIUM 500 +1 EAC5 PO; +DILAUDID8 MG PO; +GABAPENTIN300 M2 PO; +LEVAQUIN750 MG PO; +MARY'S MAGIC POTION; +METOPROLOL SUCC25 MG PO; +MIRALAX17 GM PO; +NORVASC10 MG PO; +PRAVACHOL20 MG PO; +ZESTORETIC 10-1 EAC1 PO; +[UNRECOGNIZED DRUG - OTHER] TOP
--- NOTE | ~2017-03-01 | OR ---
Unit #: [id number] #: [id number] Patient: RENETTA CHO [id number] [address] [place], [place] [address] [id number] O MR#: [id number] NAME: RENETTA CHO. ROOM: Date of Procedure: 03/01/2017 Admission Date: 03/01/2017 Surgeon: Aramis Aguirre M.D. : 1945 Attending Physician: Aramis Aguirre M.D. Referring Physician: Aramis Aguirre M.D. Primary Care Physician: Bonnie Cameron M.D. OPERATIVE REPORT PREOPERATIVE DIAGNOSES Gross hematuria, locally recurrent bladder cancer, metastatic bladder cancer, obstructed atrophic right kidney, and solitary left kidney with hydronephrosis. POSTOPERATIVE DIAGNOSES Gross hematuria, locally recurrent bladder cancer, metastatic bladder cancer, obstructed atrophic right kidney, and solitary left kidney with hydronephrosis. PROCEDURE PERFORMED Cystoscopy with extensive fulguration multiple areas of bladder, left retrograde ureteral pyelogram, and stent and temporary Golden catheter placement. ANESTHESIA General. 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 She has had ongoing chemotherapy. She has had numerous cystoscopies for multifocal recurrent tumor and more recently has developed mild left-sided hydronephrosis with continuous gross hematuria. DESCRIPTION OF PROCEDURE The patient was given preoperative antibiotics and satisfactory general anesthesia. In the dorsal lithotomy position, routine prep and drape were performed. The 21-[place] rigid cystoscope was introduced with a 30-degree lens and video showing no major tumor formation or clots. The urine was bloody and irrigated out. I was able to see slight oozing at the crater of her multiply treated persistent right-sided bladder tumor site. The remainder of the bladder generally beautifully healed and the left ureteral orifice was quite obvious. On close inspection, there were numerous areas of recurrent low-grade disease. The most likely source of the bleeding was very anterior close to bladder neck; however, the mucosa was very hypervascular, unclear if represented tumor but likely so. The 24-[place] resectoscope was introduced with a 3-mm rollerball and extensively used to ablate the anterior lesions, local recurrences scattered throughout the bladder and also areas of redness on the right Unit #: [id number] #: [id number] Patient: RENETTA CHO and around the rim of the right-sided deeply invasive tumor. With complete hemostasis and no other areas that appear treatable, a Pollack catheter was used to perform a left retrograde which showed medial deviation of the left ureter in the pelvis consistent with adenopathy and only mild obstruction but definite prominence of the calices. No clear filling defects, the ureter itself appeared diffusely almost as a chain of beads. A guidewire was easily placed followed by a 6 x 24 double-J stent, perhaps one half size too long but a shorter stent risked a retraction. The bladder was drained with a 16-[place] Golden catheter. The patient's family will remove her catheter in the morning. We will schedule follow up in 1 month with a KUB and renal ultrasound. Dictated by... Casey Melton/shari TD: 03/02/2017 16:47 JOB #: [id number] CC: Isaak Mckee M.D. OPERATIVE REPORT Page 1 of 1 X Aramis Aguirre MD X PROCEDURE OPERATIVE NOTE
--- NOTE | ~2017-03-01 | CO ---
Unit #: [id number] #: [id number] Patient: RENETTA TROY [id number] [address] [address] [id number] MR#: [id number] NAME: RENETTA TROY. ROOM: Age: 71 Sex: F Admission Date: 03/01/2017 : 1945 Attending Physician: Aramis Aguirre M.D. Primary Care Physician: Bonnie Cameron M.D. CONSULTATION REPORT HISTORY OF PRESENT ILLNESS Ms. Troy is a very pleasant 71-year-old lady with a diagnosis of bladder cancer, last chemotherapy was done about 3 months in the past. She came into the hospital with weakness and was found to have bradycardia with hypotension. She was admitted to the hospital with junctional rhythm with symptomatic bradycardia. She was admitted to the intensive care unit. She has had hematuria that has been ongoing for weeks if not months per the patient and she has been otherwise fairly asymptomatic except for some bladder and abdominal pain. CT scan was done and showing bilateral hydronephrosis, retroperitoneal adenopathy . She was admitted to the hospital for care. PAST MEDICAL HISTORY She has metastatic bladder cancer, followed by Dr. Mckee and Dr. Aguirre. Last chemotherapy per the patient 3 months prior. She has chronic pain, hypertension, hyperlipidemia, diabetes, COPD, chronic respiratory failure on 2 L of oxygen at baseline, peripheral vascular disease, compression fracture, pulmonary hypertension, valvular heart disease. She has a history of carotid endarterectomy, lower extremity stenting, abdominal aortic aneurysm repair, breast lumpectomy, TURP, . SOCIAL HISTORY She smokes about a pack per day. Denies alcohol use. Walks without assistance. FAMILY HISTORY Negative for malignancy except for her father having cancer to liver, metastatic from lung. ALLERGIES Penicillin. MEDICATIONS All listed on the chart. Please see those. REVIEW OF SYSTEMS Feeling weak, rundown, abdominal pain, hematuria, and shortness of breath. Twelve points otherwise negative. DIAGNOSTIC STUDIES LABORATORY RESULTS: Laboratory studies have been discussed in the HPI. Unit #: [id number] #: [id number] Patient: RENETTA TROY PHYSICAL EXAMINATION VITAL SIGNS: Shows a temperature of 97.7; initial pulse in the ER 43, current pulse is 90, respirations 20, blood pressure initially 95/63, current is systolic of 150, 95% of saturations on 2 L. HEENT: Eyes show no scleral icterus. Pupils are equal. Mouth is moist. Hearing is intact. NECK: Shows normal JVD. Trachea in the midline. LUNGS: Decreased at the bases. HEART: Regular rate and rhythm. She had trace peripheral edema. No murmurs, rubs, or gallops. ABDOMEN: Soft. No tenderness. She does have perhaps a little bit of ascites difficult to tell, but certainly not tender, not distended. SKIN: No rashes, ulcers, nodules. NEUROLOGIC: She is awake, alert, and oriented to person, place, and time. Normal judgment, affect and insight. . ASSESSMENT Very pleasant lady with a diagnosis of abdominal pain with metastatic bladder cancer with sommer as well as bone metastases. She has symptomatic bradycardia with hypotension and was admitted for that. She also has had chronic anemia and has had hematuria. We are getting some iron studies on her. We will follow her and see what she does from a cardiac standpoint and we will make recommendations once she is stabilized from a heart standpoint and we will check to see if she needs some intravenous iron today. Dictated by... Mik Mata M.D. EDWARD/shari TD: 03/07/2017 06:00 JOB #: [id number] CONSULTATION REPORT Page 1 of 1 X X CONSULTATION REPORT
[2017-03-01 14:49] LABS: BASOPHIL% 0.4 % (0-2.5); EOSINOPHIL% 0.6 % (0.0-7.0); HEMATOCRIT 26.8 % (35.0-45.0); HEMOGLOBIN 8.9 gm/dL (12.0-16.0); LYMPHOCYTE# 0.5 X10e3 (1.0-3.5); LYMPHOCYTE% 9.6 % (17.0-45.0); MEAN CORPUSCULAR HEMOGLOBIN 31.6 PG (28-34); MEAN CORPUSCULAR HGB CONC 33.2 g/dL (30-36); MEAN PLATELET VOLUME 8.5 FL (6.5-11.5); MONOCYTE# 0.5 X10e3 (0-1.0); MONOCYTE% 9.6 % (3.0-12.0); NEUTROPHIL# 3.9 X10e3 (1.5-7.1); NEUTROPHIL% 79.8 % (40-75); PLATELET COUNT 143 X10e3 (140-420); RED BLOOD COUNT 2.82 X10e (3.90-5.30); RED CELL DISTRIBUTION WIDTH 16.1 % (11.0-15.5); WHITE BLOOD COUNT 4.9 X10e3 (4.0-10.5)
[2017-03-01 14:50] LABS: DIFF IND NO
[2017-03-01 15:16] LABS: BUN/CREATININE RATIO 20.71; CREATININE SERUM 1.4 mg/dL (0.6-1.4); GLOM FILT RATE Estimated 37.4 mL/min (>60); POTASSIUM 4.2 mmol/L (3.5-5.1)
== END | disposition home or self-care (01) ==
LOC: CSUR 13:56
PROVIDERS: Urology
DX: C67.8 Malignant neoplasm of overlapping sites of bladder (principal); N13.30 Unspecified hydronephrosis; R31.0 Gross hematuria; C79.51 Secondary malignant neoplasm of bone; C77.9 Secondary and unspecified malignant neoplasm of lymph node, unspecified; D64.9 Anemia, unspecified; R00.1 Bradycardia, unspecified; I95.9 Hypotension, unspecified; E11.9 Type 2 diabetes mellitus without complications; J44.9 Chronic obstructive pulmonary disease, unspecified; J96.10 Chronic respiratory failure, unspecified whether with hypoxia or hypercapnia; F17.210 Nicotine dependence, cigarettes, uncomplicated; Z99.81 Dependence on supplemental oxygen; I73.9 Peripheral vascular disease, unspecified
CPT/HCPCS: 80048; 82947; 85025; C2617; J1642; J1956; J2250; J2370; J3010

== ENCOUNTER 2017-03-17 04:29 | Inpatient (IN) | payer MEDICARE ==
[~2017-03-17] VITALS: Ht 175.3 cm; Wt 64.2 kg
--- NOTE | ~2017-03-17 | TOC ---
Unit #: [id number] #: [id number] Patient: RENETTA TROY [id number] [address] [address] [id number] I MR#: [id number] NAME: RENETTA TROY. ROOM: 339 Age: 71 Sex: F Admission Date: 03/18/2017 : 1945 Attending Physician: Lola Thurston M.D. Primary Care Physician: Bonnie Cameron M.D. TRANSFER OF CARE SUMMARY PRINCIPAL DIAGNOSES 1. Chemotherapy-induced pancytopenia. 2. Symptomatic acute on chronic anemia, status post transfusion of 2 units of packed red blood cells. 3. Acute kidney injury on chronic kidney disease, stage 3, with baseline creatinine of approximately 1.4. 4. Metastatic bladder cancer, status post gemcitabine chemotherapy on March 14, 2017. 5. Hypocalcemia. 6. History of paroxysmal atrial fibrillation/atrial flutter, currently maintained in atrial fibrillation. It is rate controlled and not on anticoagulation secondary to patient's pancytopenia. 7. Hyperkalemia, now resolved. 8. Chronic hypoxic respiratory failure maintained on 2 liters of oxygen per nasal cannula continuously. 9. Chronic obstructive pulmonary disease. 10. Essential tremor. 11. Pulmonary hypertension. 12. Peripheral arterial disease. 13. Moderate protein malnutrition. 14. Labial irritation secondary to chemotherapy. 15. Aphthous oral ulcers secondary to chemotherapy. 16. Mild hypovolemic, hyponatremia now resolved. 17. Chronic pain syndrome, maintained on narcotics. 18. Hypertension. 19. Hyperlipidemia. 20. Diabetes mellitus type 2, controlled. 21. Osteoporosis. 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 PROCEDURES 1. Transfusion of 2 units of packed red blood cells, which occurred without complication. 2. Transfusion of 1 unit of platelets. This occurred without complication. DIAGNOSTIC STUDIES IMAGING: Chest x-ray on March 17, 2017, with changes of emphysema. No other acute findings. CLINICAL HISTORY AND HOSPITAL COURSE Ms. Troy is a nice, 71-year-old female with a history of Unit #: [id number] #: [id number] Patient: RENETTA TROY metastatic bladder cancer who presents to the emergency department with increasing fatigue. Patient was found to have worsening anemia following chemotherapy on March 14, 2017. Baseline hemoglobin is approximately 9.8, but when patient presented here, she was 7.4. She was transfused 2 units of packed red blood cells and subsequently admitted. Patient had one single episode of hypotension and was subsequently transferred to the unit; however, she received, again, blood, IV fluids, and hypotension resolved and she has been transferred to the floor. In regards to her anemia, her hemoglobin has remained stable since her transfusion at approximately 8-9. It is slowly trending down secondary to toxicity from her chemotherapy agent and is being followed by Dr. Mckee. Patient had subsequently developed some significant pancytopenia. Her white blood cell count has decreased to 0.1 and she is receiving Granix daily without much change at this time. We will continue to monitor. She also developed significant thrombocytopenia and required 1 unit of platelets when platelet count dropped to 10. We will continue to monitor. The patient did develop some significant aphthous ulcers of the mouth and of the labia secondary to chemotherapy and these are currently being treated with Nuris's Magic mouthwash and Nuris's Magic butt cream, respectively. Patient also developed some mild acute kidney injury secondary to poor oral intake from her ulcers. She has been placed on IV fluids and creatinine has returned to baseline. Patient also had some significant hypocalcemia. She has been placed on oral calcium supplementation and this has improved significantly. She also developed some hyperkalemia, which I think may have been secondary to difficulty with blood draws; however, this has resolved after treatment and needs to be monitored closely. No obvious causative medications on board. Patient also has a history of AFib/A flutter and has essentially been in chronic AFib that is rate controlled. She has not received any anticoagulation secondary to her significant pancytopenia. I am currently awaiting improvement in counts prior to discharge home. I will note Dr. Mckee did discuss hospice as an option upon presentation with the plans to further discuss this on an outpatient basis. Further hospital course to be dictated as an addendum. Dictated by... Lola Thurston M.D. ABILIO/claudia TD: 03/22/2017 12:25 JOB #: [id number] Unit #: [id number] #: [id number] Patient: RENETTA TROY TRANSFER OF CARE SUMMARY Page 1 of 1 X Lola Thurston MD TRANSFER OF CARE SUMMARY
--- NOTE | ~2017-03-17 | EKG ---
PATIENT: RENETTA CHO UNIT #: [id number] Ventricular Rate: 91 BPM Atrial Rate: 283 BPM QRS Duration: 90 ms Q-T Interval: 354 ms QTC Calculation(Bezet): 435 ms Calculated R [place]: 96 degrees Calculated T [place]: 18 degrees Diagnosis Line: Atrial flutter with variable A-V block Diagnosis Line: Rightward axis Diagnosis Line: Abnormal ECG Diagnosis Line: When compared with ECG of 19-FEB-2017 09:56, Diagnosis Line: Atrial flutter has replaced Junctional rhythm Diagnosis Line: Vent. rate has increased BY 43 BPM Diagnosis Line: Inverted T waves have replaced nonspecific T wave Diagnosis Line: abnormality in Inferior leads Diagnosis Line: Nonspecific T wave abnormality now evident in Diagnosis Line: Lateral leads Diagnosis Line: Confirmed by KELLY FREY MD ([id number]) on Diagnosis Line: 03/18/2017 8:56:34 AM INTERPRETING MD: TK LOYA
--- NOTE | ~2017-03-17 | CO ---
Unit #: [id number] #: [id number] Patient: RENETTA CHO [id number] [address] [address] [id number] I MR#: [id number] NAME: RENETTA CHO ROOM: 339 Age: 71 Sex: F Admission Date: 03/18/2017 : 1945 Attending Physician: Lola Thurston M.D. Primary Care Physician: Bonnie Cameron M.D. CONSULTATION REPORT CHIEF COMPLAINT Weakness. HISTORY OF PRESENT ILLNESS A 71-year-old female known to Urology Service, patient of Dr. Aguirre with long history of incontinence, metastatic bladder cancer, gross hematuria, right atrophic kidney with left hydronephrosis, status post cystoscopy and stent insertion by Dr. Aguirre on 03/01/2017. Admitted with worsening weakness over the last several weeks with associated diffuse epigastric abdominal pain described as crampy intermittent in nature, not relieved with pain medicine while hospitalized. The patient found with anemia, does report intermittent gross hematuria. No burning with urination. No fevers. No distinct flank pain. PAST MEDICAL HISTORY Hypertension and hyperlipidemia as above, diabetes, COPD, respiratory failure, vascular disease, history of compression fracture, pulmonary hypertension, atrial fibrillation. SURGICAL HISTORY Carotid endarterectomy as above, lower extremity stenting, AAA repair, cholecystectomy, lumpectomy, TURBT, port placement. SOCIAL HISTORY History of tobacco. No alcohol. No recreational drugs. FAMILY HISTORY Liver and lung cancer. ALLERGIES Penicillin. HOME MEDICATIONS Reviewed. REVIEW OF SYSTEMS The patient reports headache. No vision changes, hearing changes, cough, sore throat, chest pain, shortness of breath. No diarrhea, constipation, numbness or tingling in the extremities, rashes or bruising. PHYSICAL EXAMINATION VITAL SIGNS: Afebrile. Vital signs stable. GENERAL: Cachectic, frail. In no acute distress. Normal hearing grossly. Unit #: [id number] #: [id number] Patient: RENETTA CHO HEENT: Extraocular muscle intact grossly. Normocephalic and atraumatic. NECK: Soft. Supple. No supraclavicular lymphadenopathy. RESPIRATORY: Normal respiratory effort. Normal to palpation. ABDOMEN: Soft, nondistended, nontender. EXTREMITIES: Full range of motion. Mild edema bilateral lower extremities. PSYCHIATRIC: Normal mood and affect. NEUROLOGIC: Cranial nerves 2 to 12 grossly intact. DIAGNOSTIC STUDIES IMAGING STUDIES: CT scan on 02/19/2017; bilateral hydronephrosis right greater than left. Worsening left hydronephrosis. Retroperitoneal lymphadenopathy. LABORATORY RESULTS: Reveals creatinine 1.3, 1.5 on presentation. White blood cell count 0.1, hemoglobin 8, platelet count 13. Urine culture 03/17/2017, no significant growth. ASSESSMENT AND PLAN Metastatic bladder cancer, renal atrophy right, hydronephrosis bilaterally, status post right stent and status post left stent insertion 03/01/2017, gross hematuria, abdominal pain, renal failure, and pancytopenia. Creatinine improved. Check renal ultrasound. Dictated by... Todd Urbina M.D. CHERI/shari TD: 03/23/2017 16:10 JOB #: [id number] CONSULTATION REPORT Page 1 of 1 X Todd Urbina MD X CONSULTATION REPORT
--- NOTE | ~2017-03-17 | CO ---
Unit #: [id number] #: [id number] Patient: RENETTA TROY [id number] [address] [place], [place] [address] [id number] I MR#: [id number] NAME: RENETTA TROY ROOM: [facility] Age: 71 Sex: F Admission Date: 03/17/2017 : 1945 Attending Physician: Lola Thurston M.D. Primary Care Physician: Bonnie Cameron M.D. Consultation Date: 03/17/2017 CONSULTATION REPORT PRIMARY CARE PHYSICIAN Bonnie Cameron M.D. REASON FOR CONSULTATION Metastatic bladder cancer. HISTORY OF PRESENT ILLNESS Ms. Shonna Troy is 71 years old with metastatic bladder cancer initially diagnosed in 2014 when she presented with a bladder mass and evidence of retroperitoneal lymphadenopathy, which on biopsy confirmed metastatic disease. She has since been treated with chemotherapy and immunotherapy and most recently on single-agent gemcitabine. She was brought into the emergency room by her daughter with increasing weakness and fatigue. She was found to be severely anemic and pancytopenic and admitted for further evaluation. Ms. Troy has since had a unit of packed cells as well as IV fluids and tells me that she is feeling stronger. She tells me her chronic back pain is without significant change and well controlled with current pain medications. No recent changes in bowel habits. No constipation. She did fall at home, but did not injure herself. PAST MEDICAL HISTORY Metastatic bladder cancer as discussed; last chemotherapy was on 03/14/2017 with single-agent gemcitabine. Cancer-related pain, on Dilaudid and fentanyl. Other medical problems include hypertension, hyperlipidemia, diabetes, COPD with chronic respiratory failure, peripheral vascular disease for which she has had bilateral lower extremity stentings, pulmonary hypertension, valvular heart disease, and history of atrial fibrillation. PAST SURGICAL HISTORY Bilateral carotid endarterectomy; bilateral lower extremity peripheral arterial stenting; abdominal aortic aneurysm repair; cholecystectomy; lumpectomy; transurethral resection of bladder tumor and MediPort placement. FAMILY HISTORY Notable for father with metastatic lung cancer. SOCIAL HISTORY Lives with a daughter. She continues to smoke a few cigarettes a day. Does not drink any alcohol. She walks with the assistance of a walker, although she has been very weak in the last few days. REVIEW OF SYSTEMS Unit #: [id number] #: [id number] Patient: RENETTA TROY Fourteen-point review of systems was taken. CONSTITUTIONAL: Fatigue and weakness as discussed above. EYES: Negative. EARS, NOSE, MOUTH, and THROAT: Negative. CARDIOVASCULAR: No chest pain or palpitation. RESPIRATORY: Chronic shortness of breathing without any recent change. No cough or hemoptysis. GASTROINTESTINAL: Mild nausea and fatigue. GENITOURINARY: No dysuria or urinary frequency. NEUROLOGIC: Tremor, which is inherited and muscle weakness. PSYCHIATRIC: Negative. SKIN: Negative. ALLERGIC/LYMPHATIC: Negative. PHYSICAL EXAMINATION GENERAL: She is a pleasant, frail, elderly woman; awake, alert, and oriented x3. VITAL SIGNS: Temperature is 97.8, pulse rate is 70, respiratory rate is 18, blood pressure is 151/57, O2 saturation 96% on room air. HEENT: Shows pallor. Pupils are equal and reactive well to light. Mucous membranes are moist. NECK: Without adenopathy, JVD, or thyromegaly. CARDIOVASCULAR: First and second heart sounds are heard and regular without murmurs, gallops, or rubs. LUNGS: Chest expansion symmetric. Bilateral equal air entry with normal breath sounds. ABDOMEN: Soft and nontender. Bowel sounds are active. EXTREMITIES: Warm with good pulses. No edema, cyanosis, or clubbing. NEUROLOGIC: She is awake, alert, and oriented x3 without any focal deficits. She is visibly tremulous related to her essential tremor. PSYCHIATRIC: Normal affect. ALLERGIC/LYMPHATIC: Negative. SKIN: Negative. DIAGNOSTIC STUDIES LABORATORY RESULTS: CBC at time of admission shows a white count of 3.6, hemoglobin is 7.4, [place] [address]. Pro-time is 13.4, INR 1.2, PTT is 30.1. Lactic acid level is 1.2. Basic metabolic panel shows a BUN of 90, creatinine is 1.9. eGFR is 25.9, calcium is 6.8, alkaline phosphatase 226, total protein of 5.5 with an albumin of 2.7. ASSESSMENT AND PLAN Ms. Shonna Troy is 71 years old with a history of metastatic bladder cancer along with multiple complex medical problems including atrial fibrillation, chronic obstructive pulmonary disease, diabetes, peripheral arterial disease; admitted with weakness and pancytopenia. Pancytopenia is in part related to recent chemotherapy with the last cycle of gemcitabine on 03/14/2017. I had an extensive discussion of the situation with Ms. Troy as well as daughter at bedside. We discussed about advanced directives. We discussed about hospice, discussed about physical therapy and skilled rehab placement after improvement as well as the need for transfusion support. We will plan to repeat a CBC again. If hemoglobin is less than 8, plan to transfuse another unit of packed cells. Her pain is well controlled currently and her urine culture is pending. I will ask Physical Therapy to evaluate her. Thank you for allowing me to participate in her care. Unit #: [id number] #: [id number] Patient: RENETTA TROY Dictated by... Casey Vale/shari TD: 03/18/2017 02:45 JOB #: [id number] CONSULTATION REPORT Page 1 of 1 X Isaak Mckee MD X CONSULTATION REPORT
--- NOTE | ~2017-03-17 | US77 ---
[facility] A Service of [facility] RADIOLOGY TEXT RESULTS PATIENT: RENETTA CHO LOCATION: [facility] 339-01 : 44 UNIT #: [id number] AGE: [address]: Lola Thurston MD SEX: F ORDER DR: [id number] [facility] [address] [place], [place] [address] [id number] I MR#: [id number] Acc #: [id number] NAME: RENETTA CHO : 1945 SEX: F STUDY DATE/TIME: 03/24/2017 10:39 UNIT: [address] ROOM: [facility] STUDY DESCRIPTION: US Kidney Bilateral Complete Attending Physician: Lola Thurston M.D. Ordering Physician: Lola Thurston M.D. Primary Care Physician: Bonnie Cameron M.D. MEDICAL IMAGING REPORT This report is preliminary unless electronic signature is present EXAM Renal ultrasound INDICATION Renal insufficiency. BUN 47, creatinine 1.3. GFR 41. PROCEDURE [place]-scale and Doppler imaging of the kidneys and bladder. COMPARISON CT from 11/23/2016. FINDINGS There is a small right pleural effusion and perihepatic ascites. Right kidney measures 10 cm in length with cortical thinning and significant hydronephrosis similar to the prior CT. Unremarkable bladder. Left kidney measures 11.6 cm. Increased parenchymal echotexture. There is mild hydronephrosis on the left that is slightly increased from the previous CT. IMPRESSION 1. Bilateral hydronephrosis severe on the right and similar to the previous CT. The left-sided hydronephrosis is increased or new compared with the 11/23/2016 CT. 2. No obstructing process is seen on this study. 3. Small right pleural effusion and perihepatic ascites. Dictated by... Eros Mendoza M.D. THIS IS AN ELECTRONICALLY VERIFIED REPORT Eros Mendoza M.D. at 03/25/2017 8:15 AM [facility] A Service of [facility] RADIOLOGY TEXT RESULTS PATIENT: RENETTA CHO LOCATION: [facility] 339-01 : [birth year] UNIT #: [id number] AGE: [address]: Lola Thurston MD SEX: F ORDER DR: BRENTON/pratima TD: 03/24/2017 11:18 JOB #: [id number] MEDICAL IMAGING REPORT Page 1 of 1 COPY
--- NOTE | ~2017-03-17 | HP ---
Unit #: [id number] #: [id number] Patient: RENETTA CHO [id number] [place], [place] [address] [id number] I MR#: [id number] NAME: RENETTA CHO. ROOM: 16280 Age: 71 Sex: F Admission Date: 03/17/2017 : 1945 Attending Physician: Cheryl Pepper M.D. Primary Care Physician: Bonnie Cameron M.D. HISTORY AND PHYSICAL CHIEF COMPLAINT Weakness. HISTORY OF PRESENT ILLNESS The patient is a 71-year-old female with past medical history of metastatic bladder cancer, chronic pain, hypertension, hyperlipidemia, diabetes, COPD, chronic respiratory failure, peripheral vascular disease, pulmonary hypertension, compression fracture, valvular heart disease, chronic anemia who presented to the emergency department for evaluation of the above. The patient states that she has been feeling generally weak since her last chemotherapy treatment which was on January 12, 2017. She states that she has had nausea but no vomiting. She denies any diarrhea. No abdominal pain. No fever. No chest pain or trouble breathing. No urinary symptoms. She states that she did fall a couple days ago. She denies any loss of consciousness. She did not hit her head. She does have a walker at home. In the emergency department, initial pulse and blood pressure were 65 and 92/47 respectively. Laboratory notable for pancytopenia with white blood cell count of 3.6, hemoglobin 7.4, platelets 45,000. She was given 1 unit of packed red blood cells. Additionally, she received a 500 mL normal saline bolus. She is being admitted to [facility] for evaluation and further treatment. PAST MEDICAL HISTORY 1. Admission to [facility], February 19, 2017, for symptomatic bradycardia thought to be secondary to vagal etiology. She was seen in consultation by cardiology and medications were adjusted. She was discharged home. 2. Metastatic bladder cancer, followed by Dr. Aguirre and Dr. Mckee. Her last chemotherapy was March 14, 2017. 3. Chronic pain, maintained on p.o. Dilaudid as well as fentanyl patch. 4. Hypertension. 5. Hyperlipidemia. 6. Diabetes. 7. COPD with continued tobacco abuse. 8. Chronic respiratory failure on 2 L oxygen per nasal cannula. 9. Peripheral vascular disease, status post bilateral lower extremity stenting. 10. History of compression fracture. 11. Pulmonary hypertension. 12. Valvular heart disease: The patient has seen Dr. Henson in the past. 13. History of atrial fibrillation/flutter: The patient had an EKG on Unit #: [id number] #: [id number] Patient: RENETTA CHO July 15, 2016 that showed atrial fibrillation. She is not on chronic anticoagulation. 14. Echocardiogram, December 27, 2012 showed an ejection fraction of greater than 55% with transmitral Doppler flow pattern suggestive of pseudonormalization. Right ventricular systolic pressure was elevated at 40-50 mmHg. Mild mitral regurgitation was also noted. PAST SURGICAL HISTORY 1. Bilateral carotid endarterectomy. 2. Bilateral lower extremity stenting. 3. Abdominal aortic aneurysm repair. 4. Cholecystectomy. 5. Breast lumpectomy. 6. Transurethral resection of bladder tumor. 7. Port placement. SOCIAL HISTORY The patient lives with her daughter. She continues to smoke. She denies alcohol use. She walks without assistance, although she does have a walker at home. FAMILY HISTORY Notable for her dad having liver and lung cancer. ALLERGIES Penicillin. HOME MEDICATIONS 1. Advair 250/50 inhaled twice daily. 2. Spiriva inhaled daily. 3. Norvasc 5 mg daily. 4. Lasix 20 mg twice daily. 5. Aspirin 81 mg daily. 6. Duragesic patch 100 mcg every 48 hours. 7. Dilaudid 8 mg p.o. q.4 hours p.r.n. 8. Plavix 75 mg daily. 9. Zestoretic 10/12.5 twice daily. 10. MiraLax 17 g daily. REVIEW OF SYSTEMS A complete review of systems is negative except as indicated in the HPI. DIAGNOSTIC STUDIES LABORATORY: Troponin is less than 0.05. INR is 1.2. Complete blood count notable for white blood cell count 3.6, hemoglobin and hematocrit 7.4 and 21.3 respectively, platelets are 45,000. Lactic acid is 1.2. Comprehensive metabolic panel notable for sodium of 130, chloride 99, CO2 is 20, BUN and creatinine 90 and 1.9 respectively. Calcium is 6.8, but corrects to 7.8 when albumin of 2.7 is accounted for. AST and ALT are 45 and 42 respectively. Alkaline phosphatase 226, total protein 5.5. Urinalysis notable for 2+ leukocyte esterase, 1+ protein, 3+ blood with 50-100 red blood cells, 10-25 white blood cells, 1+ bacteria. IMAGING: Chest x-ray shows no acute abnormality. CARDIOVASCULAR: EKG shows atrial flutter with rate of 91 beats per minute. Unit #: [id number] #: [id number] Patient: RENETTA CHO PHYSICAL EXAMINATION VITAL SIGNS: Temperature is 97.7, pulse 65, respirations 16, blood pressure 92/47, oxygen saturation 92% on room air. GENERAL: The patient is a female who is chronically ill appearing in no acute distress. HEENT: The head is atraumatic. Mucous membranes are moist. NECK: Supple. Trachea is midline. CARDIOVASCULAR: Irregular. LUNGS: Clear to auscultation bilaterally with no increased work of breathing. ABDOMEN: Soft, nontender with bowel sounds present in all four quadrants. EXTREMITIES: Nontender with no pedal edema. NEUROLOGIC: The patient is awake and alert. She follows commands. PSYCHIATRIC: Mood and affect are normal. The patient is cooperative. SKIN: Skin of examined areas is warm and dry. The patient does have a port in the right upper chest. ASSESSMENT The patient is a 71-year-old female with: 1. General weakness. 2. Symptomatic anemia: The patient's hemoglobin was 8.9 on March 01, 2017. It is 7.4 today. She was noted to be heme negative in the emergency department. She is currently receiving chemotherapy. 3. Pancytopenia, likely related to chemotherapy. The patient's platelet count has been as low as 37,000 on March 07, 2017. It is 45,000 today. Hemoglobin was 8.9 on March 01, 2017. It is 7.4 today. White blood cell count has been as low as 2 on September 22, 2013. White blood cell count is 3.6 today. 4. Hypocalcemia: The patient's calcium corrects to 7.8 when albumin is accounted for. 5. Atrial fibrillation/flutter: Currently rate controlled. 6. Acute kidney injury: The patient's creatinine was 1.4 on March 01, 2017. It is 1.9 today. She is on Lasix, hydrochlorothiazide, lisinopril which could be contributing. Additionally, she is somewhat volume depleted as she has not been eating well. 7. Metastatic bladder cancer followed by Dr. Mckee, currently receiving chemotherapy with last chemotherapy March 14, 2017. 8. Chronic pain, maintained on fentanyl patch and Dilaudid. 9. Hypertension. 10. Hyperlipidemia. 11. Diabetes: The patient's hemoglobin A1c was 5.3 on February 19, 2017. 12. Chronic obstructive pulmonary disease with continued tobacco abuse. 13. Chronic respiratory failure. 14. Peripheral vascular disease, status post lower extremity stenting. 15. Compression fracture. 16. Pulmonary hypertension. 17. Valvular heart disease. PLAN 1. Admit for observation to intermediate level. 2. Physical therapy/occupational therapy to evaluate and treat. 3. Fall precautions. 4. Hemoglobin and hematocrit one hour after transfusion q.[address] Mckee regarding bladder cancer and pancytopenia. 6. Strict ins and outs. 7. Normal saline at 75 mL/hr. 8. Hold hydrochlorothiazide, lisinopril, and Lasix which could be contributing to acute kidney injury. Unit #: [id number] #: [id number] Patient: RENETTA CHO 9. P.r.n. Zofran. 10. Low-dose sliding scale insulin with Accu-Cheks. 11. Check ionized calcium and PTH. 12. Urine culture and sensitivity on urine in the lab. 13. Repeat labs in the morning. 14. Additional workup and consultants based on above. Dictated by Cheryl Pepper M.D. RENEE/puja TD: 03/17/2017 13:59 JOB #: [id number] HISTORY AND PHYSICAL Page 1 of 1 X Cheryl Pepper MD HISTORY AND PHYSICAL
--- NOTE | ~2017-03-17 | CR72 ---
[facility] A Service of [facility] RADIOLOGY TEXT RESULTS PATIENT: RENETTA CHO LOCATION: [address] : [birth year] UNIT #: [id number] AGE: [address]: Cheryl Pepper MD SEX: F ORDER DR: [id number] [facility] [address] [place], [place] [address] [id number] I MR#: [id number] Acc #: [id number] NAME: RENETTA CHO : 1945 SEX: F STUDY DATE/TIME: 03/17/2017 5:35 UNIT: CEDOF ROOM: 26040 STUDY DESCRIPTION: CR Chest Single View Portable Attending Physician: Cheryl Pepper M.D. Ordering Physician: Jackson Zhong M.D. Primary Care Physician: Bonnie Cameron M.D. MEDICAL IMAGING REPORT This report is preliminary unless electronic signature is present EXAMINATION AP portable chest DATE 03/17/2017 05:35 HISTORY 71-year-old female with bladder cancer. Progressive shortness of breath and weakness, worse over the past 2 weeks. COMPARISON AP portable chest 02/19/2017. PET CT 01/19/2017. FINDINGS Emphysematous changes. There is some linear atelectasis within the left lower lobe. Right lung appears clear. Bilateral skin fold artifacts project over the [id number] thirds of each chest bilaterally, in a symmetric fashion. Heart size is within normal limits. Right chest wall Port-A-Cath extends into the SVC. No definite pleural effusion. IMPRESSION 1. Linear left basilar subsegmental atelectasis. 2. Emphysema. 3. Incidental finding of bilateral skin fold artifacts. No definite pneumothorax is seen. Dictated by... Casi Christensen M.D. THIS IS AN ELECTRONICALLY VERIFIED REPORT Casi Christensen M.D. at 03/17/2017 9:[address] [facility] A Service of [facility] RADIOLOGY TEXT RESULTS PATIENT: RENETTA CHO LOCATION: [address] : [birth year] UNIT #: [id number] AGE: [address]: Cheryl Pepper MD SEX: F ORDER DR: TD: 03/17/2017 19:14 JOB #: [id number] MEDICAL IMAGING REPORT Page 1 of 1 COPY
[~2017-03-17 04:29] MED LIST changes: -CALCIUM 500 +1 EAC5 PO; -LEVAQUIN750 MG PO; -MARY'S MAGIC POTION; -MIRALAX17 GM PO; -[UNRECOGNIZED DRUG - OTHER] TOP
[2017-03-17 06:27] LABS: BASOPHIL% 0.1 % (0-2.5); EOSINOPHIL% 0.1 % (0.0-7.0); HEMATOCRIT 21.3 % (35.0-45.0); HEMOGLOBIN 7.4 gm/dL (12.0-16.0); LYMPHOCYTE# 0.1 X10e3 (1.0-3.5); LYMPHOCYTE% 2.1 % (17.0-45.0); MEAN CELL VOLUME 92.7 FL (83-96); MEAN CORPUSCULAR HEMOGLOBIN 32.2 PG (28-34); MEAN CORPUSCULAR HGB CONC 34.7 g/dL (30-36); MEAN PLATELET VOLUME 9.1 FL (6.5-11.5); MONOCYTE% 0.2 % (3.0-12.0); NEUTROPHIL# 3.5 X10e3 (1.5-7.1); NEUTROPHIL% 97.5 % (40-75); RED CELL DISTRIBUTION WIDTH 15.6 % (11.0-15.5); WHITE BLOOD COUNT 3.6 X10e3 (4.0-10.5)
[2017-03-17 06:30] LABS: POC - CKMB <1.0 ng/mL (0.0-7.9); POC - TROPONIN <0.05 ng/mL (<=0.05)
[2017-03-17 06:49] LABS: PLATELET COUNT 45 X10e3 (140-420)
[2017-03-17 06:50] LABS: DIFF IND YES; INR 1.2; PARTIAL THROMBOPLASTIN TIME 30.1 SECONDS (23.5-31.3); PROTHROMBIN TIME (PATIENT) 13.4 SECONDS (10.0-11.7)
[2017-03-17 06:59] LABS: PLATELET ESTIMATE DECREASED (NORMAL)
[2017-03-17 07:01] LABS: MICROCYTOSIS SL
[2017-03-17 07:05] LABS: ALBUMIN SERUM 2.7 g/dL (3.5-5.0); BILIRUBIN, DIRECT 0.6 mg/dL (0.0-0.2); BILIRUBIN,INDIRECT 0.7 mg/dL (0.0-0.9); BILIRUBIN,TOTAL 1.3 mg/dL (0.2-2.0); BUN/CREATININE RATIO 47.36; CALCIUM SERUM 6.8 mg/dL (8.4-10.2); CREATININE SERUM 1.9 mg/dL (0.6-1.4); GLOM FILT RATE Estimated 25.9 mL/min (>60); PROTEIN TOTAL SERUM 5.5 g/dL (6.0-8.3)
[2017-03-17 08:03] LABS: URINE SOURCE CATH
[2017-03-17 08:08] LABS: URINE APPEARANCE CLOUDY; URINE BILIRUBIN NEG (NEG); URINE BLOOD 3+ (NEG); URINE COLOR YELLOW; URINE GLUCOSE NEG (NEG); URINE KETONE NEG (NEG); URINE LEUKOCYTE ESTERASE 2+ (NEG); URINE NITRATE NEG (NEG); URINE PROTEIN 1+ (NEG); URINE SPECIFIC GRAVITY 1.016 (1.003-1.035)
[2017-03-17 08:11] LABS: CULTURE INDICATED? YES; URBCS1 AUWI 50-100 /[HPF] (0-2); URINE SQUAMOUS EPITHELIAL CELL OCC /[HPF]
[2017-03-17 08:27] LABS: URINE MUCUS PRESENT
[2017-03-17 08:28] LABS: URINE BACTERIA AUWI 1+ (NEGATIVE)
[2017-03-17] MEDS ORDERED: MIRALAX17 GM PO (08:57)
[2017-03-17 13:43] LABS: HEMATOCRIT 24.1 % (35.0-45.0); HEMOGLOBIN 8.4 gm/dL (12.0-16.0)
[2017-03-17 13:47] LABS: CK TOTAL 38 IU/L (26-140)
[2017-03-17 14:20] LABS: EOSINOPHIL% 0.5 % (0.0-7.0); HEMATOCRIT 24.3 % (35.0-45.0); HEMOGLOBIN 8.4 gm/dL (12.0-16.0); LYMPHOCYTE# 0.1 X10e3 (1.0-3.5); LYMPHOCYTE% 2.1 % (17.0-45.0); MEAN CELL VOLUME 91.4 FL (83-96); MEAN CORPUSCULAR HEMOGLOBIN 31.7 PG (28-34); MEAN CORPUSCULAR HGB CONC 34.6 g/dL (30-36); MEAN PLATELET VOLUME 9.2 FL (6.5-11.5); MONOCYTE% 0.4 % (3.0-12.0); NEUTROPHIL# 3.3 X10e3 (1.5-7.1); RED BLOOD COUNT 2.65 X10e (3.90-5.30); RED CELL DISTRIBUTION WIDTH 16.1 % (11.0-15.5); WHITE BLOOD COUNT 3.4 X10e3 (4.0-10.5)
[2017-03-17 14:24] LABS: DIFF IND NO; PLATELET COUNT 41 X10e3 (140-420)
[2017-03-17 18:28] LABS: HEMATOCRIT 26.9 % (35.0-45.0); HEMOGLOBIN 9.3 gm/dL (12.0-16.0)
[2017-03-17 18:49] LABS: CK TOTAL 40 IU/L (26-140)
[2017-03-18 00:41] LABS: HEMATOCRIT 26.4 % (35.0-45.0); HEMOGLOBIN 9.2 gm/dL (12.0-16.0)
[2017-03-18 06:10] LABS: HEMOGLOBIN 9.2 gm/dL (12.0-16.0); MEAN CELL VOLUME 91.3 FL (83-96); MEAN CORPUSCULAR HEMOGLOBIN 31.2 PG (28-34); MEAN CORPUSCULAR HGB CONC 34.2 g/dL (30-36); MEAN PLATELET VOLUME 9.5 FL (6.5-11.5); RED BLOOD COUNT 2.95 X10e (3.90-5.30); RED CELL DISTRIBUTION WIDTH 15.7 % (11.0-15.5)
[2017-03-18 06:13] LABS: WHITE BLOOD COUNT 1.1 X10e3 (4.0-10.5)
[2017-03-18 06:55] LABS: ALBUMIN SERUM 2.5 g/dL (3.5-5.0); BILIRUBIN,TOTAL 1.8 mg/dL (0.2-2.0); BUN/CREATININE RATIO 44.66; CALCIUM SERUM 6.5 mg/dL (8.4-10.2); CREATININE SERUM 1.5 mg/dL (0.6-1.4); GLOM FILT RATE Estimated 34.5 mL/min (>60); POTASSIUM 5.3 mmol/L (3.5-5.1); PROTEIN TOTAL SERUM 5.4 g/dL (6.0-8.3)
[2017-03-19 05:43] LABS: EOSINOPHIL% 4.8 % (0.0-7.0); HEMATOCRIT 25.4 % (35.0-45.0); HEMOGLOBIN 8.7 gm/dL (12.0-16.0); LYMPHOCYTE# 0.1 X10e3 (1.0-3.5); LYMPHOCYTE% 23.9 % (17.0-45.0); MEAN CELL VOLUME 91.5 FL (83-96); MEAN CORPUSCULAR HEMOGLOBIN 31.2 PG (28-34); MEAN CORPUSCULAR HGB CONC 34.1 g/dL (30-36); MEAN PLATELET VOLUME 8.8 FL (6.5-11.5); MONOCYTE% 0.9 % (3.0-12.0); NEUTROPHIL# 0.2 X10e3 (1.5-7.1); NEUTROPHIL% 70.4 % (40-75); RED BLOOD COUNT 2.77 X10e (3.90-5.30); RED CELL DISTRIBUTION WIDTH 15.8 % (11.0-15.5)
[2017-03-19 05:56] LABS: WHITE BLOOD COUNT 0.2 X10e3 (4.0-10.5)
[2017-03-19 05:58] LABS: DIFF IND YES; PLATELET COUNT 23 X10e3 (140-420)
[2017-03-19 06:11] LABS: BUN/CREATININE RATIO 39.33; CALCIUM SERUM 6.8 mg/dL (8.4-10.2); CREATININE SERUM 1.5 mg/dL (0.6-1.4); GLOM FILT RATE Estimated 34.5 mL/min (>60); POTASSIUM 4.8 mmol/L (3.5-5.1)
[2017-03-19 07:16] LABS: ANISOCYTOSIS SL; PLATELET ESTIMATE DECREASED (NORMAL)
[2017-03-19 07:17] LABS: BURR CELLS PRESENT
[2017-03-19 22:07] LABS: CALCIUM (PTHINTACT) 6.5 mg/dL (8.6-10.4)
[2017-03-20 07:09] LABS: CALCIUM SERUM 7.1 mg/dL (8.4-10.2); CREATININE SERUM 1.5 mg/dL (0.6-1.4); GLOM FILT RATE Estimated 34.5 mL/min (>60); MAGNESIUM 1.7 mg/dL (1.6-3.0); POTASSIUM 5.4 mmol/L (3.5-5.1)
[2017-03-20 15:08] LABS: HEMATOCRIT 25.5 % (35.0-45.0); HEMOGLOBIN 8.7 gm/dL (12.0-16.0); MEAN CELL VOLUME 91.5 FL (83-96); MEAN CORPUSCULAR HEMOGLOBIN 31.2 PG (28-34); MEAN CORPUSCULAR HGB CONC 34.1 g/dL (30-36); MEAN PLATELET VOLUME 8.5 FL (6.5-11.5); RED BLOOD COUNT 2.78 X10e (3.90-5.30); RED CELL DISTRIBUTION WIDTH 15.9 % (11.0-15.5); WHITE BLOOD COUNT 0.1 X10e3 (4.0-10.5)
[2017-03-20 15:25] LABS: BUN/CREATININE RATIO 47.14; CALCIUM SERUM 7.6 mg/dL (8.4-10.2); CREATININE SERUM 1.4 mg/dL (0.6-1.4); GLOM FILT RATE Estimated 37.4 mL/min (>60)
[2017-03-20 15:28] LABS: POTASSIUM 5.7 mmol/L (3.5-5.1)
[2017-03-21 05:31] LABS: HEMATOCRIT 23.8 % (35.0-45.0); HEMOGLOBIN 8.3 gm/dL (12.0-16.0); MEAN CELL VOLUME 89.8 FL (83-96); MEAN CORPUSCULAR HEMOGLOBIN 31.6 PG (28-34); MEAN CORPUSCULAR HGB CONC 35.1 g/dL (30-36); MEAN PLATELET VOLUME 8.8 FL (6.5-11.5); RED BLOOD COUNT 2.64 X10e (3.90-5.30); RED CELL DISTRIBUTION WIDTH 15.3 % (11.0-15.5); WHITE BLOOD COUNT 0.1 X10e3 (4.0-10.5)
[2017-03-21 05:47] LABS: BUN/CREATININE RATIO 42.85; CALCIUM SERUM 7.2 mg/dL (8.4-10.2); CREATININE SERUM 1.4 mg/dL (0.6-1.4); GLOM FILT RATE Estimated 37.4 mL/min (>60); POTASSIUM 4.8 mmol/L (3.5-5.1)
[2017-03-22 04:31] LABS: BUN/CREATININE RATIO 38.57; CALCIUM SERUM 7.4 mg/dL (8.4-10.2); CREATININE SERUM 1.4 mg/dL (0.6-1.4); GLOM FILT RATE Estimated 37.4 mL/min (>60); POTASSIUM 4.9 mmol/L (3.5-5.1)
[2017-03-22 04:39] LABS: HEMATOCRIT 23.4 % (35.0-45.0); HEMOGLOBIN 7.9 gm/dL (12.0-16.0); MEAN CELL VOLUME 91.3 FL (83-96); MEAN CORPUSCULAR HEMOGLOBIN 30.9 PG (28-34); MEAN CORPUSCULAR HGB CONC 33.8 g/dL (30-36); MEAN PLATELET VOLUME 8.8 FL (6.5-11.5); RED BLOOD COUNT 2.56 X10e (3.90-5.30); RED CELL DISTRIBUTION WIDTH 15.3 % (11.0-15.5); WHITE BLOOD COUNT 0.1 X10e3 (4.0-10.5)
[2017-03-23 07:37] LABS: HEMATOCRIT 23.3 % (35.0-45.0); MEAN CELL VOLUME 90.2 FL (83-96); MEAN CORPUSCULAR HGB CONC 34.4 g/dL (30-36); MEAN PLATELET VOLUME 8.3 FL (6.5-11.5); RED BLOOD COUNT 2.58 X10e (3.90-5.30); RED CELL DISTRIBUTION WIDTH 15.6 % (11.0-15.5); WHITE BLOOD COUNT 0.1 X10e3 (4.0-10.5)
[2017-03-23 07:58] LABS: BUN/CREATININE RATIO 36.15; CALCIUM SERUM 7.5 mg/dL (8.4-10.2); CREATININE SERUM 1.3 mg/dL (0.6-1.4); POTASSIUM 4.8 mmol/L (3.5-5.1)
[2017-03-24 06:45] LABS: HEMATOCRIT 22.1 % (35.0-45.0); HEMOGLOBIN 7.5 gm/dL (12.0-16.0); MEAN CELL VOLUME 89.4 FL (83-96); MEAN CORPUSCULAR HEMOGLOBIN 30.6 PG (28-34); MEAN CORPUSCULAR HGB CONC 34.2 g/dL (30-36); MEAN PLATELET VOLUME 7.5 FL (6.5-11.5); RED BLOOD COUNT 2.47 X10e (3.90-5.30)
[2017-03-24 06:50] LABS: WHITE BLOOD COUNT 0.5 X10e3 (4.0-10.5)
[2017-03-25 08:40] LABS: HEMATOCRIT 23.3 % (35.0-45.0); HEMOGLOBIN 7.9 gm/dL (12.0-16.0); MEAN CELL VOLUME 90.1 FL (83-96); MEAN CORPUSCULAR HEMOGLOBIN 30.6 PG (28-34); MEAN PLATELET VOLUME 7.8 FL (6.5-11.5); RED BLOOD COUNT 2.59 X10e (3.90-5.30); RED CELL DISTRIBUTION WIDTH 15.2 % (11.0-15.5)
[2017-03-25 08:57] LABS: WHITE BLOOD COUNT 1.7 X10e3 (4.0-10.5)
[2017-03-25 09:39] LABS: ALBUMIN SERUM 2.1 g/dL (3.5-5.0); BILIRUBIN,TOTAL 0.9 mg/dL (0.2-2.0); BUN/CREATININE RATIO 33.33; CALCIUM SERUM 7.8 mg/dL (8.4-10.2); CREATININE SERUM 1.2 mg/dL (0.6-1.4); GLOM FILT RATE Estimated 45.1 mL/min (>60); PROTEIN TOTAL SERUM 4.4 g/dL (6.0-8.3)
[2017-03-26 07:04] LABS: HEMATOCRIT 23.1 % (35.0-45.0); MEAN CELL VOLUME 89.5 FL (83-96); MEAN CORPUSCULAR HEMOGLOBIN 30.9 PG (28-34); MEAN CORPUSCULAR HGB CONC 34.6 g/dL (30-36); MEAN PLATELET VOLUME 8.7 FL (6.5-11.5); RED BLOOD COUNT 2.58 X10e (3.90-5.30); RED CELL DISTRIBUTION WIDTH 15.3 % (11.0-15.5)
[2017-03-26 07:06] LABS: WHITE BLOOD COUNT 4.9 X10e3 (4.0-10.5)
[2017-03-26 07:40] LABS: CALCIUM SERUM 8.2 mg/dL (8.4-10.2); CREATININE SERUM 1.2 mg/dL (0.6-1.4); GLOM FILT RATE Estimated 45.1 mL/min (>60); POTASSIUM 5.2 mmol/L (3.5-5.1)
[2017-03-26] MEDS ORDERED: CALCIUM 500 +1 EAC5 PO (14:04)
[2017-03-26] MEDS ORDERED: MARY'S MAGIC POTION (14:09)
[2017-03-26] MEDS ORDERED: [UNRECOGNIZED DRUG - OTHER] TOP (14:10)
== END 2017-03-26 14:40 | disposition home or self-care (01) | DRG 808 ==
LOC: CED 04:29 → C3A PCU 08:20 → CEDOF 08:20 → CED 08:20 → C3A PCU 08:20 → CEDOF 08:45 → CED 08:45 → CICCU3 21:12 → CEDOF 21:12 → CICCU3 03-18 07:32 → C3A PCU 03-18 08:20 → CICCU3 03-18 08:20 → CEDOF 03-18 08:20 → C3A PCU 03-18 10:15 → CICCU3 03-18 10:15 → C3A PCU 03-18 10:15
PROVIDERS: Emergency Medicine; Family Medicine; Internal Medicine; Internal Medicine Hematology & Oncology; Urology
PROC: 30233N1 Transfusion of Nonautologous Red Blood Cells into Peripheral Vein, Percutaneous Approach (ICD-10-PCS; principal; 2017-03-17)
PROC: 6A551Z2 Pheresis of Platelets, Multiple (ICD-10-PCS; 2017-03-26)
DX: D61.810 Antineoplastic chemotherapy induced pancytopenia (principal); G92 Toxic encephalopathy; N17.9 Acute kidney failure, unspecified; E44.0 Moderate protein-calorie malnutrition; J96.11 Chronic respiratory failure with hypoxia; I48.92 Unspecified atrial flutter; E87.2 Acidosis; I48.91 Unspecified atrial fibrillation; E11.22 Type 2 diabetes mellitus with diabetic chronic kidney disease; I12.9 Hypertensive chronic kidney disease with stage 1 through stage 4 chronic kidney disease, or unspecified chronic kidney disease; N13.30 Unspecified hydronephrosis; E87.1 Hypo-osmolality and hyponatremia; Z68.1 Body mass index [BMI] 19.9 or less, adult; D64.9 Anemia, unspecified; E83.51 Hypocalcemia; C67.9 Malignant neoplasm of bladder, unspecified; E78.5 Hyperlipidemia, unspecified; J44.9 Chronic obstructive pulmonary disease, unspecified; F17.210 Nicotine dependence, cigarettes, uncomplicated; I73.9 Peripheral vascular disease, unspecified; I27.2 Other secondary pulmonary hypertension; Z88.0 Allergy status to penicillin; Z90.49 Acquired absence of other specified parts of digestive tract; N18.3 Chronic kidney disease, stage 3 (moderate); G25.0 Essential tremor; E87.5 Hyperkalemia; G89.4 Chronic pain syndrome; M81.0 Age-related osteoporosis without current pathological fracture
CPT/HCPCS: 36415; 71010; 76770; 80048; 80053; 80076; 81003; 82310; 82330; 82550; 82553; 82947; 83605; 83735; 83935; 83970; 84132; 84484; 85014; 85018; 85025; 85027; 85610; 85730; 86850; 86900; 86901; 86923; 87040; 87086; 93005; 94640; 94664; 94760; 94761; 96360; 96361; 97110; 97116; 97162; 97167; 97530; 97535; 99285; G8978-GP; G8979-GP; G8987-GO; G8988-GO; J0610; J0692; J0696; J1447; J1642; J1815; J1940; J2405; P9016; P9035; P9037

== ENCOUNTER 2017-03-27 07:52 | Observation (INO) | payer MEDICARE ==
[~2017-03-27] VITALS: Ht 167.6 cm; Wt 65.6 kg
--- NOTE | ~2017-03-27 | CR72 ---
[facility] A Service of [facility] RADIOLOGY TEXT RESULTS PATIENT: RENETTA CHO LOCATION: [facility] 323- : 44 UNIT #: [id number] AGE: [address]: DIANA CASTELLON MD SEX: F ORDER DR: [id number] [facility] [address] [place], [place] [address] [id number] I MR#: [id number] Acc #: [id number] NAME: RENETTA CHO : 1945 SEX: F STUDY DATE/TIME: 03/27/2017 8:27 UNIT: [address] ROOM: [facility] STUDY DESCRIPTION: CR Chest Single View Portable Attending Physician: Diana Castellon M.D. Ordering Physician: Edward Arias M.D. Primary Care Physician: Bonnie Cameron M.D. MEDICAL IMAGING REPORT This report is preliminary unless electronic signature is present EXAM Portable chest 03/27/2017. INDICATIONS Generalized weakness and shortness of air since yesterday. History of bladder cancer. COMPARISON AP portable views of the chest compared with 03/17/2017. FINDINGS Cardiomegaly is stable. Infiltrates in the bases, left greater than right, have worsened since the prior study. There is a small volume of left pleural fluid. No pneumothorax is identified. Incidental note is made of bilateral skin folds overlying the lungs. Dictated by... Aramis Arriola Jr., M.D. THIS IS AN ELECTRONICALLY VERIFIED REPORT Aramis Arriola Jr., M.D. at 03/27/2017 4:45 PM RLK/anu TD: 03/27/2017 13:25 JOB #: [id number] MEDICAL IMAGING REPORT Page 1 of 1 COPY
--- NOTE | ~2017-03-27 | DS ---
Unit #: [id number] #: [id number] Patient: RENETTA TROY [id number] [address] [address] [id number] I MR#: [id number] NAME: RENETTA TROY. ROOM: 323 Age: 71 Sex: F Admission Date: 03/27/2017 : 1945 Discharge Date: 03/28/2017 Attending Physician: Lola Thurston M.D. Primary Care Physician: Bonnie Cameron M.D. DISCHARGE SUMMARY PRINCIPAL DIAGNOSES 1. Weakness, multifactorial. 2. Questionable bibasilar pneumonia without fever or leukocytosis. 3. Chemotherapy-induced anemia, status post transfusion of 1 unit of packed red blood cells. 4. Thrombocytopenia, chemotherapy induced, improving. 5. Chronic hypoxic respiratory failure, maintained on 2 L of oxygen per nasal cannula continuously. 6. Metastatic bladder cancer, status post gemcitabine therapy on March 14, 2017. 7. Hypertension. 8. Peripheral arterial disease. 9. Hypertension. 10. Hyperlipidemia. 11. Diabetes mellitus type 2. 12. Tobaccoism. 13. Chronic atrial fibrillation, rate controlled and off antiplatelet therapy due to thrombocytopenia. 14. Osteoporosis. 15. Pulmonary hypertension. 16. Chronic panic syndrome, maintained on narcotics. 17. Moderate protein malnutrition. 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 PROCEDURES 1. Chest x-ray on March 27, 2017: Infiltrates in the bases, left greater than right. A small volume of left pleural fluid. 2. MRI of the brain with and without contrast on March 28, 2017, with chronic right ventricle infarct, moderate chronic ischemic changes around the ventricles bilaterally. No other acute findings. CLINICAL HISTORY AND HOSPITAL COURSE Ms. Troy is a 71-year-old female discharged from this facility on March 26, 2017 after a prolonged hospitalization for chemotherapy-induced pancytopenia. The patient was clinically improving with resolution of leukocytosis and again was discharged on the . She returns on the complaining of feeling weak. She was also having some dysuria but had had some significant labial irritation secondary to her chemotherapy treatment. Lab work in the emergency department was unremarkable, and patient was placed in observation for evaluation. Patient has remained afebrile throughout hospitalization. Patient had no Unit #: [id number] #: [id number] Patient: RENETTA TROY evidence of leukocytosis. She does have a mild amount of anemia and she is being transfused 1 unit of packed red blood cells. Any other obvious source of patient's weakness has not been identified. She does have questionable bibasilar pneumonia on chest x-ray but no fever, no leukocytosis, and really no symptoms. I am going to treat her with a short course of Levaquin but again my clinical suspicion for pneumonia is only [id number]. Patient was seen in consultation by Dr. Mckee who again discussed goals of care therapy with her. Patient is refusing hospice. She is refusing palliative care. She is refusing inpatient rehab. She is also questioning home health, though she is currently followed by [facility]. She has also been seen by physical therapy and appears to be at her baseline. She received a significant amount of operator/assistant foreman from her daughters. The patient is otherwise medically stable, really no change from her discharge on the and we are going to discharge her home. DISCHARGE CONDITION Stable. DISCHARGE STATUS Discharge to home with home health. DISCHARGE MEDICATIONS 1. Levaquin 750 mg p.o. daily for another six days. 2. Advair 250/50 one puff b.i.d. 3. Spiriva 18 mcg one puff daily. 4. MiraLax 17 g p.o. daily p.r.n. for constipation. 5. Fentanyl patch 100 mcg every 48 hours. 6. Dilaudid 8 mg p.o. q.4 hours p.r.n. for pain. 7. Calcium 500 plus D one tablet b.i.d. 8. Nuris's Magic Mouthwash every six hours p.r.n. for mouth soreness. 9. Nuris's Amazing Butt Paste topically q.6 hours to labia. DISCHARGE INSTRUCTIONS 1. The patient was instructed to follow a regular diet. 2. She can increase her activity as tolerated. 3. She should wear oxygen at 2 L per nasal cannula at all times. FOLLOWUP Patient will follow up with Dr. Mckee early next week. Goals of care should again be addressed at that visit. Dictated by... Lola Thurston M.D. ABILIO/puja TD: 03/29/2017 11:56 JOB #: [id number] Unit #: [id number] #: [id number] Patient: RENETTA TROY DISCHARGE SUMMARY Page 1 of 1 X Lola Thurston MD X DISCHARGE SUMMARY
--- NOTE | ~2017-03-27 | CO ---
Unit #: [id number] #: [id number] Patient: RENETTA TROY [id number] [address] [place], [place] [address] [id number] I MR#: [id number] NAME: RENETTA TROY ROOM: 323 Age: 71 Sex: F Admission Date: 03/27/2017 : 1945 Attending Physician: Lola Thurston M.D. Primary Care Physician: Bonnie Cameron M.D. CONSULTATION REPORT REASON FOR CONSULTATION Metastatic bladder cancer. Please evaluate. HISTORY OF PRESENT ILLNESS Ms. Renetta Troy is a 71-year-old with a history of metastatic bladder cancer, well known to me, initially diagnosed in 2014, who was recently discharged from the hospital after having profound pancytopenia secondary to chemotherapy. Following discharge home, she re-presented to the emergency room with confusion and generalized weakness. Her UA was abnormal, urinary tract infection was suspected, and she was admitted for further evaluation. Ms. Troy tells me that she feels slightly better today and according to daughter who was at bedside, the episodes of confusion had become less frequent. No fever, headache, chronic nausea without any vomiting, and chronic back pain, again without any significant change in recent weeks. PAST MEDICAL HISTORY Metastatic bladder cancer, diagnosed originally in 2014 when she presented disease. PET-CT scan showed retroperitoneal lymphadenopathy as well as left AP window lymphadenopathy. CT-guided biopsy of retroperitoneal lymph node showed metastatic carcinoma. She has since been treated with chemotherapy and radiation therapy to her metastatic disease to the spine as well as immune therapy, most recently single agent gemcitabine. Other medical problems include essential tremor, hypertension, hyperlipidemia, type 2 diabetes, COPD with chronic respiratory failure, peripheral vascular disease for which she has had stents, and atrial fibrillation. PAST SURGICAL HISTORY Includes bilateral carotid endarterectomy, peripheral arterial stenting, abdominal aortic aneurysm repair, cholecystectomy, lumpectomy, transurethral resection of bladder tumors, and MediPort placement. FAMILY HISTORY Notable for father with metastatic lung cancer. SOCIAL HISTORY Smokes few cigarettes. Lives with her daughter. She has 2 daughters who live locally are very involved in her care, and a son who lives in [place]. Does not drink any alcohol. REVIEW OF SYSTEMS Fourteen point review of systems taken. CONSTITUTIONAL: Weakness as discussed. Unit #: [id number] #: [id number] Patient: RENETTA TROY Eyes negative. EARS, NOSE, MOUTH, AND THROAT: Negative. CARDIOVASCULAR: No chest pain or palpitation. RESPIRATORY: Chronic shortness of breath without any recent change. GASTROINTESTINAL: Negative. GENITOURINARY: Some urinary frequency. No hematuria. ALLERGIC/LYMPHATIC: Negative. SKIN: Negative. MUSCULOSKELETAL: Weakness and back pain. NEUROLOGIC: Generalized weakness. PHYSICAL EXAMINATION GENERAL: She is a thin elderly woman, in no distress currently. VITAL SIGNS: Temperature 97.6, pulse rate 57, respiratory rate 16, blood pressure 124/69. Pain is 9 on a scale of 10. O2 saturations 100% on room air. HEENT: Shows pupils are equal and reactive well to light. She is pale, but not icteric. Mucous membranes are moist. NECK: Without adenopathy, JVD, or thyromegaly. CARDIOVASCULAR: First and second heart sounds are heard and regular without murmurs, gallops, or rubs. LUNGS: Chest expansion is symmetric bilaterally. Normal breath sounds. ABDOMEN: Soft and nontender. Bowel sounds are present. No organomegaly. EXTREMITIES: Warm. Good pulses. No edema, cyanosis, or clubbing. NEUROLOGIC: She is awake, alert, and oriented x3 without any focal findings. SKIN: Negative. PSYCHIATRIC: Normal affect. No flight of ideas, lymphatic negative x2. DIAGNOSTIC STUDIES LABORATORY RESULTS: CBC with a white count of 10.3, hemoglobin 7.7, platelet count 33,000. Urine culture is negative. BMP shows a BUN of 27, creatinine is 1.1. EGFR is 50.1. Procalcitonin level is 0.88. IMAGING STUDIES: Radiology; chest x-ray, single view shows stable cardiomegaly, bilateral infiltrates slightly worse. ASSESSMENT AND PLAN Ms. Renetta Troy is a 71-year-old with a history of diabetes, hypertension, chronic obstructive pulmonary disease, atrial fibrillation, with metastatic bladder cancer which was diagnosed in 2014, presented with following problems: 1. Confusional state. This has been episodic and according to daughter has marginally improved following admission. Given the quite a long history of metastatic bladder cancer, she has a risk of brain metastasis and recommended an MRI of the brain to be done with contrast as soon as possible. 2. Pancytopenia, blood counts are actually slightly improved except for anemia. Her platelet count is 33,000 without any evidence of bleeding and is stable to improved versus previous. Would require a transfusion of single unit of packed cells, which I discussed with the patient including risk and benefits. 3. Weakness, multifactorial, likely combination of anemia, metastatic cancer, as well as multiple complex medical problems. 4. Metastatic bladder cancer. I had an extensive discussion with Ms. Troy as well as daughter about options. Given her poor performance and weakness, I think additional palliative chemotherapy may not be beneficial unless she was to significantly improve. We discussed about hospice Unit #: [id number] #: [id number] Patient: RENETTA TROY, which she declines. We also discussed about advanced directives including DNR, which again she wishes to discuss with the daughter, but wishes to be full code at this moment. Thank you for allowing me to participate in her care. Dictated by... Casey Vale/shari TD: 03/29/2017 15:39 JOB #: [id number] CONSULTATION REPORT Page 1 of 1 X Isaak Mckee MD X CONSULTATION REPORT
--- NOTE | ~2017-03-27 | HP ---
Unit #: [id number] #: [id number] Patient: RENETTA CHO [id number] [address] [place], [place] [address] [id number] MR#: [id number] NAME: RENETTA CHO ROOM: 323 Age: 71 Sex: F Admission Date: 03/27/2017 : 1945 Attending Physician: Diana Castellon M.D. Primary Care Physician: Bonnie Cameron M.D. HISTORY AND PHYSICAL CHIEF COMPLAINT Generalized weakness. HISTORY OF PRESENT ILLNESS The patient is a 71-year-old female with a past medical history of metastatic bladder cancer status post chemo on March 14 with gemcitabine chemotherapy, chronic pain, hypertension, hyperlipidemia, diabetes, COPD, chronic respiratory failure, peripheral vascular disease, chronic anemia and chemotherapy-induced pancytopenia. She was discharged to home yesterday. Presented to the emergency room with generalized weakness. The patient stated she was too weak to go home and then presented to the emergency room today. The patient had a chest x-ray that showed infiltrates in the bases, left greater than right, that have worsened since the prior study. The patient is being admitted for probable pneumonia. The patient stated she does not want to be Hospice or palliative care and wanted to have some strength back. The patient was started on IV antibiotics and is being admitted for the above reasons. The patient complains of productive cough, whitish in color. Denies any fever or chills. Positive for nausea and vomiting. PAST MEDICAL HISTORY History of symptomatic bradycardia, metastatic bladder cancer, chronic pain, hypertension, hyperlipidemia, diabetes, COPD with continued tobacco abuse, chronic respiratory failure - on 2 liters, history of compression fracture, pulmonary hypertension, valvular heart disease, A fib. PAST SURGICAL HISTORY Bilateral carotid endarterectomy, bilateral lower extremity stenting, abdominal aortic aneurysm repair, cholecystectomy, breast lumpectomy, TURBT, port placement. SOCIAL HISTORY The patient lives with her daughter. She continues to smoke. She denies alcohol abuse. She walks without assistance, and she does not have a walker at home. FAMILY HISTORY Notable for lung cancer. ALLERGIES Penicillin. MEDICATIONS She is on Advair, Spiriva, Duragesic, Dilaudid, MiraLAX, calcium, Nuris's Unit #: [id number] #: [id number] Patient: RENETTA CHO Magic/Amazing Butt Paste. REVIEW OF SYSTEMS Positive for weakness. Positive for cough. Positive for shortness of breath. Positive for nausea and vomiting. Other systems have been reviewed, and all other systems are negative. PHYSICAL EXAMINATION GENERAL: The patient is lying on the bed, not in acute distress. VITALS: Temperature is 98, pulse 84, respiratory rate 18, blood pressure 147/58, satting 99% on room air. HEENT: Head atraumatic, normocephalic. Pupils are equally round reactive to light and accommodation. Extraocular movements are intact. Dry mucous membranes. NECK: Supple. LUNGS: Decreased air entry at the bases. Coarse breath sounds. HEART: Regular rate and rhythm. ABDOMEN: Soft. Positive bowel sounds. EXTREMITIES: No cyanosis. No clubbing. NEUROLOGIC: Alert, awake, oriented. No gross focal motor deficit. DIAGNOSTIC STUDIES IMAGING: Chest x-ray shows cardiomegaly stable. Infiltrates in the bases, left greater than right, have worsened since the prior study. There is a small volume of left fluid. No pneumothorax is identified. LAB DATA: Sodium is 132, potassium 5.1, chloride 99, bicarb 26, glucose 114, BUN 35, creatinine 1.2, calcium 8, AST 79, ALT 82, alkaline phosphatase 282, albumin 2.3. WBC 9.7, hemoglobin 7.6, hematocrit 22.6, platelets 34. UA shows 1+ leukocyte esterase and innumerable urine RBCs, 50-100 urine WBCs. Troponin less than 0.05, and glucose is 105. ASSESSMENT 1. Generalized weakness. 2. History of metastatic bladder cancer. 3. COPD. 4. Chronic respiratory failure, on 2 liters of oxygen. 5. Continued tobacco abuse. PLAN Plan to admit the patient to observation. The patient will continue with IV antibiotics with Maxipime and Zithromax. The patient will have OT/PT evaluation. The patient will be continued with pain control and monitor the pancytopenia and transfuse as needed. The patient denies any Hospice or palliative care at this time. Continue with supportive care and physical therapy. Further recommendations to follow. Dictated by Casey Aguilar TD: 03/28/2017 08:24 JOB #: [id number] Unit #: [id number] #: [id number] Patient: RENETTA CHO HISTORY AND PHYSICAL Page 1 of 1 X DIANA CASTELLON MD HISTORY AND PHYSICAL
--- NOTE | ~2017-03-27 | DS ---
Unit #: [id number] #: [id number] Patient: RENETTA CHO [id number] [address] [place], [place] [address] [id number] MR#: [id number] NAME: RENETTA CHO. ROOM: 323 Age: 71 Sex: F Admission Date: 03/27/2017 : 1945 Discharge Date: 03/28/2017 Attending Physician: Lola Thurston M.D. Primary Care Physician: Bonnie Cameron M.D. DISCHARGE SUMMARY Note - this is a continuation of a Transfer of Care Summary done on March 22, 2017. ADDITIONAL PRINCIPAL DIAGNOSES Hyperkalemia. ADDITIONAL CONSULTANTS Dr. Aguirre. ADDITIONAL PROCEDURE Transfusion of two more units of platelets. ADDITIONAL HOSPITAL COURSE Following the last dictation, patient slowly began to improve. With Granix therapy, her leukopenia has resolved. However, she has had persistent thrombocytopenia and has required two additional units of platelets. On the day of discharge, the patient's platelet count is still low at 13 but she is being transfused an additional unit. She will follow up with Dr. Mckee closely on an outpatient basis. I am going to discontinue Plavix and aspirin at home given her low platelet count and this has been discussed with the patient. The patient has also had some intermittent lower blood pressures off of her antihypertensives here. I am going to discontinue these at home as well. The patient underwent renal ultrasounds and bilateral hydronephrosis for which Dr. Aguirre was a datastage consultant. However, after discussion with both Dr. Mckee and Dr. Aguirre, patient's hydronephrosis is at baseline and her renal function is also at baseline. There is no plan for any other intervention at this time and her current platelet count includes precludes this. The patient will be discharged home today. DISCHARGE CONDITION Stable. DISCHARGE STATUS Discharge to home. DISCHARGE MEDICATIONS 1. Advair 250/50, one puff b.i.d. 2. Spiriva 18 mcg, one puff daily. Unit #: [id number] #: [id number] Patient: RENETTA CHO 3. MiraLAX 17 g p.o. daily p.r.n. for constipation. 4. Fentanyl patch 100 mcg every 48 hours. 5. Dilaudid 8 mg p.o. q.4 hours p.r.n. for pain. 6. Os-Lamberto 500 plus D, one tablet b.i.d. 7. Swish and spit every six hours p.r.n. until resolution of mouth ulcers. 8. Nuris's Amazing Butt Paste to labia every six hours until labial irritation resolves. 9. Please note - I am discontinuing lisinopril hydrochlorothiazide, Norvasc, Plavix and aspirin. DISCHARGE INSTRUCTIONS The patient was instructed to follow a regular diet. She can increase her activity as tolerated. FOLLOWUP The patient will follow up with Dr. Mckee on March, at 9 a.m. Patient will follow up with Dr. Aguirre as previously scheduled. Dictated by... Lola Thurston M.D. ABILIO/baljinder TD: 03/29/2017 08:44 JOB #: [id number] DISCHARGE SUMMARY Page 1 of 1 X Lola Thurston MD DISCHARGE SUMMARY
--- NOTE | ~2017-03-27 | EKG ---
PATIENT: RENETTA CHO UNIT #: [id number] Ventricular Rate: 81 BPM Atrial Rate: 300 BPM QRS Duration: 88 ms Q-T Interval: 346 ms QTC Calculation(Bezet): 401 ms Calculated R Redway: 67 degrees Calculated T Redway: 58 degrees Diagnosis Line: Atrial flutter with variable A-V block Diagnosis Line: Low voltage QRS Diagnosis Line: Abnormal ECG Diagnosis Line: When compared with ECG of 17-MAR-2017 07:46, Diagnosis Line: T wave inversion no longer evident in Inferior Diagnosis Line: leads Diagnosis Line: Nonspecific T wave abnormality no longer evident Diagnosis Line: in Lateral leads Diagnosis Line: Confirmed by OMER NEWMAN MD ([id number]) on 03/27/2017 Diagnosis Line: 11:12:02 PM INTERPRETING MD: PATY LOYA
--- NOTE | ~2017-03-27 | MR17 ---
[facility] A Service of [facility] & [facility] RADIOLOGY TEXT RESULTS PATIENT: RENETTA CHO LOCATION: [facility] 323- : 44 UNIT #: [id number] AGE: [address]: Lola Thurston MD SEX: F ORDER DR: [id number] [facility] [address] [place], [place] [address] [id number] I MR#: [id number] Acc #: [id number] NAME: RENETTA CHO : 1945 SEX: F STUDY DATE/TIME: 03/28/2017 10:52 UNIT: [address] ROOM: [facility] STUDY DESCRIPTION: MR Brain WWo Contrast Attending Physician: Lola Thurston M.D. Ordering Physician: Isaak Mckee M.D. Primary Care Physician: Bonnie Cameron M.D. MRI CENTER REPORT This report is preliminary unless electronic signature is present. EXAM Brain MRI with and without contrast HISTORY Bladder carcinoma with spinal metastasis. Chronic generalized weakness over the past 3-4 years. Evaluate for intracranial malignancy. TECHNIQUE Multiplanar imaging of the brain was performed with and without contrast. 10 mL of MultiHance was used. COMPARISON 09/28/2016 FINDINGS Diffusion weighted images are unremarkable. The routine brain images show atrophy with moderate chronic ischemic changes around the ventricles and a chronic cortical infarct in the right frontal lobe. There is no evidence of mass lesion, hemorrhage or edema. No significant changes are seen when compared to the previous scan. After contrast administration, no abnormal enhancement is seen. Extraaxial structures are unremarkable. IMPRESSION Chronic right frontal infarct. Moderate chronic ischemic changes around the ventricles bilaterally. No acute findings. STAT * RESULT Dictated by... Aramis Angel M.D. THIS IS AN ELECTRONICALLY VERIFIED REPORT Aramis Angel M.D. at 03/28/2017 3:03 PM [facility] A Service of [facility] RADIOLOGY TEXT RESULTS PATIENT: RENETTA CHO LOCATION: [facility] 323-01 : 44 UNIT #: [id number] AGE: [address]: Lola Thurston MD SEX: F ORDER DR: Mami TD: 03/28/2017 11:55 JOB #: [id number] MRI CENTER REPORT Page 1 of 1 COPY
[~2017-03-27 07:52] MED LIST changes: +CALCIUM 500 +1 EAC5 PO; +MARY'S MAGIC POTION; +MIRALAX17 GM PO; +[UNRECOGNIZED DRUG - OTHER] TOP
[2017-03-27 09:00] LABS: POC - CKMB <1.0 ng/mL (0.0-7.9); POC - TROPONIN <0.05 ng/mL (<=0.05)
[2017-03-27 09:13] LABS: URINE SOURCE CATH
[2017-03-27 09:20] LABS: URINE APPEARANCE TURBID; URINE BILIRUBIN NEG (NEG); URINE BLOOD 3+ (NEG); URINE COLOR ORANGE; URINE GLUCOSE NEG (NEG); URINE KETONE NEG (NEG); URINE LEUKOCYTE ESTERASE 1+ (NEG); URINE NITRATE NEG (NEG); URINE PH 5.5 (5-8); URINE PROTEIN 2+ (NEG); URINE SPECIFIC GRAVITY 1.017 (1.003-1.035)
[2017-03-27 09:22] LABS: CULTURE INDICATED? YES; URBCS1 AUWI INNUM /[HPF] (0-2); URINE BACTERIA AUWI NEG (NEGATIVE); URINE SQUAMOUS EPITHELIAL CELL OCC /[HPF]; UWBCS1 AUWI 50-100 (0-5)
[2017-03-27 09:23] LABS: BASOPHIL% 0.1 % (0-2.5); EOSINOPHIL% 0.1 % (0.0-7.0); HEMATOCRIT 22.6 % (35.0-45.0); HEMOGLOBIN 7.6 gm/dL (12.0-16.0); LYMPHOCYTE# 0.4 X10e3 (1.0-3.5); MEAN CORPUSCULAR HEMOGLOBIN 30.1 PG (28-34); MEAN CORPUSCULAR HGB CONC 33.8 g/dL (30-36); MEAN PLATELET VOLUME 7.8 FL (6.5-11.5); MONOCYTE% 0.4 % (3.0-12.0); NEUTROPHIL# 9.3 X10e3 (1.5-7.1); NEUTROPHIL% 95.4 % (40-75); RED BLOOD COUNT 2.54 X10e (3.90-5.30); RED CELL DISTRIBUTION WIDTH 15.1 % (11.0-15.5)
[2017-03-27 09:26] LABS: DIFF IND YES; PLATELET COUNT 34 X10e3 (140-420); WHITE BLOOD COUNT 9.7 X10e3 (4.0-10.5)
[2017-03-27 09:39] LABS: URINE YEAST PRESENT
[2017-03-27 09:41] LABS: ANISOCYTOSIS SL; PLATELET ESTIMATE DECREASED (NORMAL)
[2017-03-27 09:43] LABS: ALBUMIN SERUM 2.3 g/dL (3.5-5.0); BILIRUBIN, DIRECT 0.4 mg/dL (0.0-0.2); BILIRUBIN,INDIRECT 0.7 mg/dL (0.0-0.9); BILIRUBIN,TOTAL 1.1 mg/dL (0.2-2.0); BUN/CREATININE RATIO 29.16; CREATININE SERUM 1.2 mg/dL (0.6-1.4); GLOM FILT RATE Estimated 45.1 mL/min (>60); POTASSIUM 5.1 mmol/L (3.5-5.1); PROTEIN TOTAL SERUM 4.7 g/dL (6.0-8.3)
[2017-03-28 06:24] LABS: HEMATOCRIT 22.7 % (35.0-45.0); HEMOGLOBIN 7.7 gm/dL (12.0-16.0); MEAN CELL VOLUME 89.6 FL (83-96); MEAN CORPUSCULAR HEMOGLOBIN 30.3 PG (28-34); MEAN CORPUSCULAR HGB CONC 33.8 g/dL (30-36); MEAN PLATELET VOLUME 8.1 FL (6.5-11.5); RED BLOOD COUNT 2.53 X10e (3.90-5.30); RED CELL DISTRIBUTION WIDTH 15.5 % (11.0-15.5); WHITE BLOOD COUNT 10.3 X10e3 (4.0-10.5)
[2017-03-28 06:58] LABS: BUN/CREATININE RATIO 24.54; CALCIUM SERUM 7.7 mg/dL (8.4-10.2); CREATININE SERUM 1.1 mg/dL (0.6-1.4); GLOM FILT RATE Estimated 50.1 mL/min (>60); POTASSIUM 4.8 mmol/L (3.5-5.1)
[2017-03-28 07:01] LABS: PROCALCITONIN 0.88 NG/ML
[2017-03-28] MEDS ORDERED: LEVAQUIN750 MG PO (16:16)
== END 2017-03-28 18:27 | disposition home or self-care (01) ==
LOC: CED 07:52 → CEDOF 10:45 → CED 11:12 → CEDOF 11:12 → C3A PCU 11:50 → CEDOF 11:50 → C3A PCU 11:50
PROVIDERS: Emergency Medicine; Internal Medicine
DX: R53.1 Weakness (principal); J96.10 Chronic respiratory failure, unspecified whether with hypoxia or hypercapnia; D64.81 Anemia due to antineoplastic chemotherapy; J44.9 Chronic obstructive pulmonary disease, unspecified; D63.0 Anemia in neoplastic disease; C79.11 Secondary malignant neoplasm of bladder; D69.59 Other secondary thrombocytopenia; E87.5 Hyperkalemia; F17.200 Nicotine dependence, unspecified, uncomplicated; I73.9 Peripheral vascular disease, unspecified; E78.5 Hyperlipidemia, unspecified; I27.2 Other secondary pulmonary hypertension; E11.9 Type 2 diabetes mellitus without complications; I48.2 Chronic atrial fibrillation; M81.0 Age-related osteoporosis without current pathological fracture; E46 Unspecified protein-calorie malnutrition; C34.90 Malignant neoplasm of unspecified part of unspecified bronchus or lung; Z99.81 Dependence on supplemental oxygen; Z90.49 Acquired absence of other specified parts of digestive tract; Z98.890 Other specified postprocedural states; Z79.51 Long term (current) use of inhaled steroids; Z79.899 Other long term (current) drug therapy
CPT/HCPCS: 36415; 36430; 51701; 70553; 71010; 80048; 80076; 81003; 82308; 82553; 82947; 84484; 85025; 85027; 86850; 86900; 86901; 86923; 87086; 93005; 94640; 94664; 94760; 96361; 96365; 96366; 96374; 96375; 96376; 99285; A9577; G0378; J0456; J0692; J1170; J1642; J2405; J3260; J3370; P9016